=== PATIENT | female | born 1950 | race African-American/Black ===

== ENCOUNTER 2021-04-08 19:40 | Observation (INO) | payer MEDICARE, SELFPAY ==
[2021-04-08] VITALS (8 sets, daily range): BP systolic 132–155; BP diastolic 59–71; PULSE 77–88; RESP 18–22; TEMP 37; O2SAT 100
--- NOTE | ~2021-04-08 | NM_ITS ---
EXAMINATION: NM flor stress w perfusion DATE: 04/09/2021 16:02 INDICATION: Chest pain. TECHNIQUE: Rest images were obtained following intravenous administration of 10.3 mCi Tc99m tetrofosm in (Myoview). The patient was infused intravenously with Lexiscan (regadenoson). Then, 33.2 mCi Tc99m tetrofosmin (Myoview) was administered intravenously, and stress images were obtained. Data was adolfo nstructed into short axis and horizontal and vertical long axis SPECT images. Gated SPECT images were also obtained. COMPARISON: Chest CT 04/08/2021 FINDINGS: There is no definite reversible or fixed perfusion abnormality to suggest ischemia or infar ction. There is no segmental wall motion abnormality. Left ventricular ejection fraction measures > 70%. IMPRESSION: 1. No definite ischemia or infarct. 2. Normal left ventricular ejection fraction measuring >70%. Reviewed, dictated and finalized at location B. ING CARRIER
--- NOTE | ~2021-04-08 | XR_ITS ---
XR chest 2V 04/08/2021 20:33 Indication: Sternal chest pressure. History of stents. Procedure: PA and lateral views of the chest Comparison: No prior studies for comparison. Findings: There are linear infiltrates of the lower lungs, compatible with atelectasis. Heart size no rmal. No focal pneumonia, edema, pleural effusion or pneumothorax. No acute osseous abnormality. Impression: 1: Bibasilar subsegmental atelectasis. Reviewed, dictated and finalized at location A. ER BLENDER AND POURER Impression: 1: Bibasilar subsegmental atelectasis.
--- NOTE | ~2021-04-08 | CT_ITS ---
EXAMINATION: CTA chest PE protocol DATE: 04/08/2021 23:53 LICENSED VETERINARY TECHNICIAN INDICATION: Elevated d-dimer. TECHNIQUE: Computed tomographic angiography (CTA) of the chest was performed with 100 mL Omnipaque-35 0 intravenous contrast. The dose-length product was 163.86 mGy-cm. Maximum intensity projection 3D-re constructions of the aorta and other arteries were constructed by the technologist on a separate work station. COMPARISON: Chest x-ray dated 04/08/2021. FINDINGS: Study is technically adequate without evidence for pulmonary embolism. No thoracic lymphade nopathy. No evidence for aortic aneurysm or dissection. No significant pleural or pericardial effusio n. There is emphysema. No endobronchial lesions. There is linear subsegmental atelectasis of the mid and lower lungs. No focal airspace consolidation. There is a small hiatal hernia. No endobronchial le sions. No suspicious pulmonary nodules or masses. There is a 2.8 cm right adrenal mass, likely benign adenoma. IMPRESSION: 1. No evidence for pulmonary embolism. 2: Subsegmental atelectasis of the mid and lower lungs. 3: Right adrenal mass measuring 2.8 cm, likely benign adenoma. Reviewed, dictated and finalized at location A. NSED VETERINARY TECHNICIAN
--- NOTE | 2021-04-08 19:46 | ECG_ITS ---
Measurements Intervals [place] Rate: 95 P: -9 DC: 169 QRS: 89 QRSD: 63 T: 23 QT: 345 QTc: 436 Interpretive Statements ECTOPIC ATRIAL RHYTHM POSSIBLE LEFT ATRIAL ENLARGEMENT INCOMPLETE RIGHT BUNDLE BRANCH BLOCK LOW QRS VOLTAGE- DIFFUSE LEADS ANTERIOR INFARCT, AGE INDETERMINATE BASELINE ARTIFACT- II, III, AVR, AVF, V5-V6 ABNORMAL ECG Electronically Signed On 04-08-2021 20:11:41 SUPERVISOR [employer]FA[employer]URING by Roby Rahman D.O.
[2021-04-08] MEDS: ASPIRIN 81 MG CHEWABLE TABLET 324 MG PO (19:55)
[2021-04-08 20:29] LABS: Basophils Percent Auto 0.2 % (0.2-1.2); Eosinophils Percent Auto 0.1 % (0-4.4); Hematocrit 39.2 % (37.0-47.0); Hemoglobin 13.1 g/dL (12.0-15.0); Immature Granulocyte Absolute 0.04 K/mm3 (0.00-0.031); Immature Granulocyte Percent A 0.4 % (0-0.5); Lymphocytes Absolute Auto 1.43 K/mm3 (0.9-3.2); Lymphocytes Percent Auto 15.9 % (18.3-44.2); Mean Corpuscular HGB Conc 33.4 g/dl (32-36); Mean Corpuscular Hemoglobin 28.6 pg (26-34); Mean Corpuscular Volume 85.6 fl (80-100); Mean Platelet Volume 8.8 fl (7.4-10.4); Monocytes Absolute Auto 0.6 K/mm3 (0.1-0.6); Monocytes Percent Auto 6.7 % (2.6-8.5); Neutrophils Absolute Auto 6.9 K/mm3 (1.3-6.7); Neutrophils Percent Auto 76.7 % (45.5-73.1); Platelet Count Result 431 k/mm3 (150-375); Red Blood Count 4.58 M/mm3 (4.2-5.4); Red Cell Distribution Width 12.7 % (11.5-14.5)
[2021-04-08 20:38] LABS: Prothrombin Time 12.6 Seconds (11.1-14.7)
[2021-04-08 20:39] LABS: Partial Thromboplastin Time 36.6 SECONDS (22.3-36.8)
[2021-04-08 20:50] LABS: Alanine Aminotransferase 17 U/L (4-35); Albumin Level 4.2 g/dL (3.5-5.1); Alkaline Phosphatase 114 U/L (38-126); Anion Gap 12 mmol/L (8-16); Aspartate Amino Transferase 25 U/L (14-36); Bilirubin,Total 0.9 mg/dL (0.2-1.3); Blood Urea Nitrogen 12 mg/dL (7-17); Calcium 9.7 mg/dL (8.4-10.2); Carbon Dioxide 28 mmol/L (22-30); Chloride 94 mmol/L (98-107); Estimated CRCL calculation 50 ml/min; Estimated Glomerular Filt Rate > 60; Glucose 200 mg/dL (65-110); Lipase 177 U/L (23-300); Potassium 4.6 mmol/L (3.4-5.0); Sodium 134 mmol/L (137-145)
[2021-04-08 20:53] LABS: Troponin I < 0.012 ng/mL (0.000-0.034)
--- NOTE | 2021-04-08 21:02 | ED.CHESTPAIN ---
HPI - Chest Pain General Chief Complaint: Chest Pain Stated Complaint: Shortness of breath, chest discomfort Time Seen by Provider: 04/08/21 19:57 Source: patient Mode of arrival: ambulatory Limitations: no limitations History of Present Illness HPI narrative: 71 year old female with history of CAD s/p stent, HTN, DM2, high cholesterol complains of 2 day history of chest pain, substernal, non-radiating, intermittent, none currently. NO fever, no vomiting, no cough, does have shortness of breath with chest pain today. No leg swelling. Pain described as dull, non-radiating worse with nothing, improves with nothing. Last stress test a year ago. No recent medication changes. Related Data Allergies Allergy/AdvReac Type Severity Reaction Status Date / Time Penicillins Allergy Dyspnea / Verified 04/08/21 19:55 SOB Review of Systems Review of Systems: CONSTITUTIONAL: no fever, no weight loss, no confusion EYES: no vision changes, no eye pain ENT: no rhinorrhea, no sore throat, no difficulty swallowing CARDIOVASCULAR: positive for chest pain, no leg edema, no palpitations RESPIRATORY: no cough, positive for shortness of breath, no hemoptysis GASTROINTESTINAL: no abdominal pain, no nausea, no vomiting, no diarrhea GENITOURINARY: no flank pain, no dysuria, no hematuria SKIN: no rash, no jaundice MUSCULOSKELETAL: no back pain, no trauma. NEUROLOGIC: No headache, no dizziness, no focal weakness PSYCHIATRIC: No hallucinations, no suicidal ideation Exam Narrative: General: alert, afebrile, answering all questions appropriately Head: normocephalic, atraumatic Eyes: EOMI bilaterally, anicteric, no injection ENT: moist mucous membranes, oropharynx patent, no rhinorrhea Neck: supple, trachea midline, no JVD Chest: equal chest rise bilaterally, no chest wall trauma noted Lungs: clear to auscultation bilaterally, respirations unlabored CV: regular rate, no TERESA B, calf size equal bilaterally Abd: soft, non-distended, negative Begum's EXT: no deformity noted, moving all extremities equally Skin: warm, dry, no pallor Neuro: alert, oriented x 3; CN 2-12 grossly intact, no dysarthria Psych: affect appropriate, though content normal Course Course Emergency Course: SPoke with Dr Kraus regarding tele obs given risk factors of CAD, HTN, DM2 with chest pain. CTA PE study negative for PE. Vital Signs Vital signs: Vital Signs Pulse Rate 77 04/08/21 20:00 Temperature 37.0 C 04/08/21 20:17 Pulse Rate 81 04/09/21 02:24 Respiratory Rate 20 04/09/21 02:24 Blood Pressure 134/61 04/09/21 02:24 Pulse Oximetry 96 04/09/21 02:24 MDM - Chest Pain MDM Narrative Medical decision making narrative: Patient with multiple risk factors, including CAD, HTN and DM-- chest pain resolved in ED, no chest pain currently, CTA negative for PE or acute process, will admit OBS for chest pain rule out. Patient aware and agrees with plan. Differential Diagnosis Differential diagnosis: Likely pneumothorax, stable angina, unstable angina pectoris, atypical chest pain, chest pain, biliary colic and other (Pleural effusion, vascular catastrophe, gastritis, pancreatitis, GERD) Medical Records Data Attestation: I reviewed the patient's medical records. Lab Data Attestation: I reviewed the patient's lab results. Result diagrams: 04/08/21 20:11 04/08/21 20:11 Labs: Lab Results 04/08/21 04/08/21 04/08/21 Range/Units 20:11 20:11 20:11 WBC 9.0 (4.5-10.0) K/mm3 RBC 4.58 (4.2-5.4) M/mm3 Hgb 13.1 (12.0-15.0) g/dL Hct 39.2 (37.0-47.0) % MCV 85.6 (80-100) fl MCH 28.6 (26-34) pg MCHC 33.4 (32-36) g/dl RDW 12.7 (11.5-14.5) % Plt Count 431 H (150-375) k/mm3 MPV 8.8 (7.4-10.4) fl Immature Gran % (Auto) 0.4 (0-0.5) % Neut % (Auto) 76.7 H (45.5-73.1) % Lymph % (Auto) 15.9 L (18.3-44.2) % [place] % (Auto) 6.7 (2.6-8.5) % Eos % (Auto) 0.1 (0-4.4) % Baso %
[2021-04-08 22:53] LABS: D Dimer 2.54 ug/mL (<0.48)
[2021-04-09] VITALS (15 sets, daily range): BP systolic 134–153; BP diastolic 61–79; PULSE 74–90; RESP 16–20; TEMP 36.3–36.7; O2SAT 96–100; BMI 24.0
[2021-04-09 00:13] LABS: Troponin I < 0.012 ng/mL (0.000-0.034)
[2021-04-09 02:56] LABS: Troponin I < 0.012 ng/mL (0.000-0.034)
--- NOTE | 2021-04-09 03:50 | PM.IMHP ---
H&P: HPI History of Present Illness Date/Time: 04/09/21 03:50 Chief Complaint: Chest pain Narrative: 71 year old female who is originally from [place] came here to visit his her son with history of CAD s/p stent last stent 5 years ago, HTN, DM2, high cholesterol complains of 2 day history of chest pain, substernal, non-radiating, constant since past 2 days. She arrived here via train from [place] on Thursday. She denies any fever chills cough nausea vomiting abdominal pain. She states that she had some pancreatic issue for which she had a pancreatic stent put in but was taken out 2 weeks ago. She states she had a stress test done a year ago which was negative. She actually followed up with her material inspector. Workup here reveals nonspecific ST-T changes with troponin negative. D-dimer came back elevated CT scan PE protocol was done particularly due to recent travel history came back negative for PE. With her cardiac history and diabetes she is getting admitted for further evaluation and management. Review of Systems Review of Systems: - CONSTITUTIONAL: Denies weight loss, fever and chills. - HEENT: Denies changes in vision and hearing - RESPIRATORY: Reports SOB and denies cough. - CV: Denies palpitations and reports CP. - GI: Denies abdominal pain, nausea, vomiting and diarrhea. - : Denies dysuria and urinary frequency. - MSK: Denies myalgia and joint pain. - SKIN: Denies rash and pruritus. - NEUROLOGICAL: Denies headache and syncope. - PSYCHIATRIC: Denies recent changes in mood. Denies anxiety and depression. All systems reviewed & are unremarkable except as noted in HPI and below Constitutional: Constitutional: Reports fatigue and Reports weakness Neurologic: Reports weakness Endocrine: Endocrine: Reports fatigue Meds Home Medications and Allergies Allergies Allergy/AdvReac Type Severity Reaction Status Date / Time Penicillins Allergy Dyspnea / Verified 04/08/21 19:55 SOB Vital Signs Vital Signs - 24 hr 04/08/21 20:00 04/08/21 20:02 04/08/21 20:03 Temperature Pulse Rate 77 88 87 Respiratory Rate 21 H 18 Blood Pressure 155/71 H Pulse Oximetry 04/08/21 20:15 04/08/21 20:17 04/08/21 20:34 Temperature 98.6 F Pulse Rate 78 77 79 Respiratory Rate 19 22 H 19 Blood Pressure 142/61 H Pulse Oximetry 100 04/08/21 20:45 04/08/21 21:19 04/09/21 02:24 Temperature Pulse Rate 83 81 81 Respiratory Rate 20 18 20 Blood Pressure 132/59 L 134/61 Pulse Oximetry 100 96 Exam Narrative: General: alert, afebrile, not in acute distress Head: normocephalic, atraumatic Eyes: EOMI bilaterally, anicteric, no injection ENT: moist mucous membranes, oropharynx patent, no rhinorrhea Neck: supple, trachea midline, no JVD Chest: equal chest rise bilaterally, no chest wall trauma noted Lungs: clear to auscultation bilaterally, respirations unlabored CV: regular rate, no TERESA B, calf size equal bilaterally Abd: soft, non-distended, negative Begum's EXT: no deformity noted, moving all extremities equally Skin: warm, dry, no pallor Neuro: alert, oriented x 3; CN 2-12 grossly intact, no dysarthria Psych: affect appropriate, though content normal H&P: Results Labs Labs: Short CBC 04/08/21 Range/Units 20:11 WBC 9.0 (4.5-10.0) K/mm3 Hgb 13.1 (12.0-15.0) g/dL Hct 39.2 (37.0-47.0) % Plt Count 431 H (150-375) k/mm3 BMP 04/08/21 20:11 Sodium 134 L Potassium 4.6 Chloride 94 L Carbon Dioxide 28 BUN 12 Creatinine 0.70 Glucose 200 H Calcium 9.7 Cardiac Enzymes 04/08/21 04/08/21 04/09/21 Range/Units 20:11 23:42 02:23 Troponin I < 0.012 < 0.012 < 0.012 (0.000-0.034) ng/mL Liver Function 04/08/21 Range/Units 20:11 Total Bilirubin 0.9 (0.2-1.3) mg/dL AST 25 (14-36) U/L ALT 17 (4-35) U/L Alkaline Phosphatase 114 (38-126) U/L Albumin 4.2 (3.5-5.1) g/dL Assessment and Plan Assessment and plan (1
--- NOTE | 2021-04-09 05:51 | ADMGEN ---
This patient, Claudia Hernadez, was admitted to IMU Room 206-01 at 0551. Patient/family oriented to hospital policies and general routines including ID bracelet, bed and alarms, visiting hours, pain management, procedures, bathroom and other care routines, personal items, smoking policy, room service/diet, and visiting hours. Information on how to activate the Rapid Response Team has been discussed. Patient/Family are encouraged to report perceived risks to care and to ask questions if they do not understand what they are told or what they should do.
--- NOTE | 2021-04-09 09:16 | PM.IMPN ---
Subjective Date/time seen: 04/09/21 09:16 Objective Data Vital Signs Vital Signs: Vital Signs - 24 hr 04/08/21 20:00 04/08/21 20:02 04/08/21 20:03 Temperature Pulse Rate 77 88 87 Respiratory Rate 21 H 18 Blood Pressure 155/71 H Pulse Oximetry 04/08/21 20:15 04/08/21 20:17 04/08/21 20:34 Temperature 98.6 F Pulse Rate 78 77 79 Respiratory Rate 19 22 H 19 Blood Pressure 142/61 H Pulse Oximetry 100 04/08/21 20:45 04/08/21 21:19 04/09/21 02:24 Temperature Pulse Rate 83 81 81 Respiratory Rate 20 18 20 Blood Pressure 132/59 L 134/61 Pulse Oximetry 100 96 04/09/21 04:36 04/09/21 04:58 04/09/21 05:21 Temperature Pulse Rate 90 78 79 Respiratory Rate 18 18 Blood Pressure 140/64 140/64 Pulse Oximetry 96 04/09/21 06:00 04/09/21 06:04 04/09/21 08:07 Temperature 97.7 F 98.0 F Pulse Rate 76 80 75 Respiratory Rate 18 16 Blood Pressure 140/61 149/64 H Pulse Oximetry 100 99 Meds/Results Medications: Active Medications Generic Name Dose Route Start Last Admin Trade Name Freq PRN Reason Stop Dose Admin Aspirin 81 mg 04/09/21 09:00 Aspirin 81 Mg Enteric Tablet PO QAM [facility] Dextrose 12.5 gm 04/09/21 03:57 Dextrose 50% 25 Gm/50 Ml Syringe IV PUSH PRN PRN Hypoglycemia Protocol Glucagon 1 mg 04/09/21 03:57 Glucagon For Inj 1 Mg Vial IM PRN PRN Hypoglycemia Protocol Glucose 15 gm 04/09/21 03:57 Glucose Oral Gel 15 Gm Of Glucse In 37.5 Gm Tube PO PRN PRN Hypoglycemia Protocol Dextrose 1,000 mls @ 100 mls/hr 04/09/21 03:57 Dextrose 5% 1,000 Ml IVPB PRN PRN Hypoglycemia Protocol Insulin Aspart 2 - 5 units 04/09/21 08:00 Insulin Aspart (*Bkc) 100 Units/Ml SUB-Q TIDWM [facility] Protocol Radiology Results: ITS Impressions Chest X-Ray 04/08/21 20:43 Impression: 1: Bibasilar subsegmental atelectasis. Chest CTA 04/08/21 23:53 IMPRESSION: 1. No evidence for pulmonary embolism. 2: Subsegmental atelectasis of the mid and lower lungs. 3: Right adrenal mass measuring 2.8 cm, likely benign adenoma. Labs Labs: Laboratory Results - last 24 hr 04/08/21 04/08/21 04/08/21 20:11 20:11 20:11 WBC 9.0 RBC 4.58 Hgb 13.1 Hct 39.2 MCV 85.6 MCH 28.6 MCHC 33.4 RDW 12.7 Plt Count 431 H MPV 8.8 Immature Gran % (Auto) 0.4 Neut % (Auto) 76.7 H Lymph % (Auto) 15.9 L [place] % (Auto) 6.7 Eos % (Auto) 0.1 Baso % (Auto) 0.2 Lymph # (Auto) 1.43 [place] # (Auto) 0.6 Eos # (Auto) 0.0 Baso # (Auto) 0.0 Abs Immat Gran (auto) 0.04 H Absolute Neuts (auto) 6.9 H Absolute Nucleated RBC 0.0 Nucleated RBC % 0.0 PT 12.6 INR 1.0 APTT 36.6 D-Dimer Sodium 134 L Potassium 4.6 Chloride 94 L Carbon Dioxide 28 Anion Gap 12 BUN 12 Creatinine 0.70 Estim Creat Clear Calc 50 Estimated GFR > 60 Glucose 200 H Calcium 9.7 Total Bilirubin 0.9 AST 25 ALT 17 Alkaline Phosphatase 114 Troponin I < 0.012 Total Protein 8.0 Albumin 4.2 Lipase 177 04/08/21 04/08/21 04/09/21 20:11 23:42 02:23 WBC RBC Hgb Hct MCV MCH MCHC RDW Plt Count MPV Immature Gran % (Auto) Neut % (Auto) Lymph % (Auto) [place] % (Auto) Eos % (Auto) Baso % (Auto) Lymph # (Auto) [place] # (Auto) Eos # (Auto) Baso # (Auto) Abs Immat Gran (auto) Absolute Neuts (auto) Absolute Nucleated RBC Nucleated RBC % PT INR APTT D-Dimer 2.54 H Sodium Potassium Chloride Carbon Dioxide Anion Gap BUN Creatinine Estim Creat Clear Calc Estimated GFR Glucose Calcium Total Bilirubin AST ALT Alkaline Phosphatase Troponin I < 0.012 < 0.012 Total Protein Albumin Lipase
[2021-04-09] MEDS: ASPIRIN 81 MG ENTERIC TABLET PO (09:41)
[2021-04-09 09:46] LABS: Glucose Point of Care 117 mg/dl (65-105)
--- NOTE | 2021-04-09 11:15 | PM.CNCAR ---
Assessment and Plan Assessment and plan (1) Chest pain: Qualifiers: Chest pain type: unspecified Qualified Code(s): R07.9 - Chest pain, unspecified Code(s): R07.9 - Chest pain, unspecified Status: Acute Assessment and Plan: Atypical, nonexertional persisted for greater than 48 hours with negative serial cardiac enzymes or acute ischemic EKG changes. Symptoms completely resolved. Patient at elevated risk due to age, history of CAD with prior intervention, hypertension, dyslipidemia, and diabetes mellitus. Discussed options at length including preference to pursue noninvasive ischemic evaluation for further risk stratification given her history. However, as she has ruled out for AR with atypical constant sxs that have now completely resolved in addition to having ruled out for AR, it would be reasonable to continue medical management alone. I feel she is at increased risk for adverse events as [place] of [place] and will travel by train back home with limited medical resources. Therefore, given this risk I advised the information provided by noninvasive ischemic evaluation would be useful to assess her risk prior to travel. After lengthy discussion patient initially was fairly clear she did not wish to pursue any additional testing and initially respectfully declined. Subsequently, she indicated she would consider this recommendation and her options and notify us if she changes her mind and pursue stress test prior to discharge. She expressed a desire initially to hold off and follow up with her front end developer javascript html css for further testing as appropriate. If she does not agree to pursue stress test, I would like to observe for tolerance with ambulation and after eating to ensure she does not have a recurrence of her symptoms. Agree with PPI per hospitalist service. I will repeat her 12 lead EKG and obtain a fasting lipid panel. Her exam is not suggestive significant valvular heart disease. We discussed 2D echo cardiac to assess wall motion, function and valve pathology. At this time as she is completely asymptomatic with an unremarkable exam is unlikely to alter our management so will hold off given her desire to avoid additional testing at this time. If no subsequent changes by EKG she is currently stable from a cardiac perspective and may be discharged home per hospitalist service follow-up as an outpatient. She will monitor symptoms very closely and should she ever current to notify her physician and or present to the nearest emergency department immediately via EMS. Patient verbalized understanding and agreed with plan of care. (2) Coronary artery disease: Code(s): I25.10 - Atherosclerotic heart disease of [place] coronary artery without angina pectoris Status: Acute Assessment and Plan: Continue aspirin 81 mg daily, statin, beta-mami therapy. Records unavailable unfortunately at this time but I would like to review if able to obtain. Reported prior stent implantation approximately 5 years ago. She reports current symptoms somewhat similar to that which she has experienced previously occurring monthly or so for the past several years with negative stress tests performed with her front end developer javascript html css with whom she follows on routine basis. (3) Palpitations: Code(s): R00.2 - Palpitations Status: Acute Assessment and Plan: Appear to coincide with chest pain but no prior diagnosis of arrhythmia nor arrhythmia documented telemetry including atrial or ventricular ectopy. Continue Toprol XL 50 mg daily for now. (4) Ectopic atrial rhythm: Code(s): I49.1 - Atrial premature depolarization Status: Acute Assessment and Plan: Discussed with patient at length. Patient is asymptomatic with incidentally discovered ectopic atrial rhythm. Chronicity is unknown. No evidence of high-grade AV block or symptoms suggestive a bradyarrhythmia with near-syncope, syncope, dizziness and or falls.
--- NOTE | 2021-04-09 11:25 | ECG_ITS ---
Measurements Intervals [place] Rate: 75 P: 7 GA: 178 QRS: -15 QRSD: 70 T: 17 QT: 381 QTc: 428 Interpretive Statements SINUS OR ECTOPIC ATRIAL RHYTHM INCOMPLETE RIGHT BUNDLE BRANCH BLOCK LOW QRS VOLTAGE IN LIMB LEADS CONSIDER ANTERIOR INFARCT, AGE INDETERMINATE MINIMAL Q WAVES- INFERIOR LEADS ABNORMAL ECG Electronically Signed On 04-09-2021 12:11:07 ALUM MIXER by Roby Rahman D.O.
--- NOTE | 2021-04-09 11:47 | EST_ITS ---
Patient Info Name: Claudia Hernadez Age: 71 years : 1950 Gender: Female Ht: 62 in Wt: 131 lbs BSA: 1.62 m2 HR: 78 bpm BP: 161 / 73 mmHg Heart Rhythm: Sinus Rhythm Exam Date: 04/09/2021 2:57 PM Exam Location: [facility] Stress Patient Status: Inpatient Admit Date: 04/09/2021 Staff Ordering Physician: Dennis Mark MD Attending Provider: Vel Sandoval MD Exercise Technologist: Martha Moreira CT Exercise Physician: Dennis Mark MD Exam Type: CA stress flor w NM Study Info Indications I25.119 - Atherosclerotic heart disease of [place] coronary artery with unspecified angina pectoris R07.9 - Chest pain, unspecified A regadenoson stress test was performed. Summary 1. No arrhythmias were observed during the examination. 2. No abnormal ST/T wave changes with Lexiscan administration. 3. Please correlate with nuclear medicine images, reported separately. 4. No chest discomfort with stress test. Protocol: Lexiscan Stress ECG Details Stage: REST Duration (min): 2 min : 35 sec HR (bpm): 79 SBP (mmHg): 161 DBP (mmHg): 73 Stage: REST Duration (min): 8 min : 26 sec HR (bpm): 81 SBP (mmHg): 161 DBP (mmHg): 73 Stage: STAGE 1 Duration (min): 1 min : 0 sec HR (bpm): 106 SBP (mmHg): 146 DBP (mmHg): 74 Stage: RECOVERY Duration (min): 1 min : 0 sec HR (bpm): 105 SBP (mmHg): 146 DBP (mmHg): 74 Stage: RECOVERY Duration (min): 2 min : 0 sec HR (bpm): 106 SBP (mmHg): 146 DBP (mmHg): 74 Stage: RECOVERY Duration (min): 3 min : 0 sec HR (bpm): 101 SBP (mmHg): 146 DBP (mmHg): 74 Stage: RECOVERY Duration (min): 4 min : 0 sec HR (bpm): 96 SBP (mmHg): 146 DBP (mmHg): 74 Stage: RECOVERY Duration (min): 4 min : 42 sec HR (bpm): 100 SBP (mmHg): 177 DBP (mmHg): 70 Rest HR: 81 bpm Peak HR: 108 bpm Rest Sys BP: 161 mmHg Peak Sys BP: 177 mmHg Max Pred HR: 149 bpm % Max Pred HR: 72 % Target HR: 127 bpm Max RPP: 19,116 bpm*mmHg BP Response: Normal blood pressure response Termination Reason: Completed protocol Cardiac Symptoms: None Total Time: 1 min : 0 sec Rest Cardenas BP: 73 mmHg Peak Cardenas BP: 70 mmHg Total Dose: 0.4 mg Resting ECG Normal sinus rhythm. RSR prime V1 V2 borderline EKG. Stress ECG No abnormal ST/T wave changes with Lexiscan administration. Arrhythmias No arrhythmias were observed during the examination. Report Signatures
[2021-04-09 12:23] LABS: Cholesterol 120 mg/dL (0-200); HDL Direct 30 mg/dL; Triglycerides 90 mg/dL (<150)
[2021-04-09 12:30] LABS: Glucose Point of Care 93 mg/dl (65-105)
[2021-04-09 12:34] LABS: LDL Cholesterol Direct 48 mg/dL
[2021-04-09] MEDS: PANTOPRAZOLE SOD SESQUIHYDRATE 20 MG TAB PO (12:45)
--- NOTE | 2021-04-09 17:00 | PM.DS ---
DS: Admitting Diagnosis Discharge Date 04/08/2021 Admitting Diagnosis Atypical Chest Pain DS: Discharge Diagnosis Discharge Diagnosis (1) Atypical chest pain: Code(s): R07.89 - Other chest pain Status: Acute Assessment and Plan: Patient presented to ED with chest pain and shortness of breath. D-dimer elevated but CTA showed no PE. EKG with ectopic atrial rhythm. Serial troponins. History of CAD w/ stent placement 4 years ago. Negative stress test about a year ago per patient. Given history patient underwent chemical stress test, which was unremarkable. Patient advised to follow up with her Teletype Installer in [place]. (2) Ectopic atrial rhythm: Code(s): I49.1 - Atrial premature depolarization Status: Acute Assessment and Plan: Noted on EKG in ED. (3) Hyperlipidemia: Code(s): E78.5 - Hyperlipidemia, unspecified Status: Acute Assessment and Plan: On atorvastatin 40 mg po daily at home. Continue atorvastatin. (4) Hypertension: Code(s): I10 - Essential (primary) hypertension Status: Acute Assessment and Plan: On lisinopril 5 mg po daily. Continue lisinopril. (5) Type 2 diabetes mellitus: Code(s): E11.9 - Type 2 diabetes mellitus without complications Status: Acute Assessment and Plan: Takes trulicity, jardiance, glimepiride and metformin at home. Continue home medication. (6) Coronary artery disease: Code(s): I25.10 - Atherosclerotic heart disease of [place] coronary artery without angina pectoris Status: Acute Assessment and Plan: S/p stent placement 5 years ago with negative stress test a year ago. Lexiscan today was normal with EF 70%. Continue atorvastatin and metoprolol. (7) Palpitations: Code(s): R00.2 - Palpitations Status: Acute Assessment and Plan: Patient has been having this since prior to presentation with initial symptoms initiating workup that culminated with stent placement 5 years ago. This may be due to anxiety. Follow up with PCP. DS: Summary Hospital Course Hospital Course: Patient presented to the ED with chest pain and was found to have an elevated D dimer. CTA chest showed no pulmonary embolism. Patient cardiac enzymes were all normal. Give patient history of CAD s/p stent placement 5 years ago, patient was taken by Cardiology for lexiscan. Lexiscan was normal with EF 70%. Patient discharged to home. Time Spent with Patient Time attestation: Total time spent providing and/or coordinating discharge services: 20 Exam Narrative: GENERAL: NAD, cooperative HEENT: Normocephalic, atraumatic, anicteric, wearing eyeglasses NECK: Supple CV: Normal S1, S2, RRR, No MRG RESP: CTAB, Normal work of breathing. Abdomen: Soft, non-tender, non-distended, +BS EXTREMITIES: Warm and well perfused, no clubbing, cyanosis, or edema. SKIN: warm, dry and intact. NEURO:CN 2-12 grossly intact. DS: Data Data Completed and Pending Labs on day of discharge: Labs from last 24 hours 04/09/21 04/09/21 04/09/21 12:08 11:41 09:44 WBC RBC Hgb Hct MCV MCH MCHC RDW Plt Count MPV Immature Gran % (Auto) Neut % (Auto) Lymph % (Auto) [place] % (Auto) Eos % (Auto) Baso % (Auto) Lymph # (Auto) [place] # (Auto) Eos # (Auto) Baso # (Auto) Abs Immat Gran (auto) Absolute Neuts (auto) Absolute Nucleated RBC Nucleated RBC % PT INR APTT D-Dimer Sodium Potassium Chloride Carbon Dioxide Anion Gap BUN Creatinine Estim Creat Clear Calc Estimated GFR Glucose POC Capillary Glucose 93 117 H Calcium Total Bilirubin AST ALT Alkaline Phosphatase Troponin I Total Protein Albumin Triglycerides 90 Cholesterol 120 LDL Cholesterol Direct 48 HDL Direct 30 Lipase 04/09/21 04/08/21 04/08/21 02:23 23:42 20:1
[2021-04-09 17:17] LABS: Glucose Point of Care 133 mg/dl (65-105)
== END 2021-04-09 18:28 | disposition home or self-care (01) ==
LOC: ANHED 04-09 00:09 → ANHIMU 04-09 11:09
PROVIDERS: Emergency Medicine; Internal Medicine Cardiovascular Disease; Admitting Provider Internal Medicine; Emergency Provider Emergency Medicine; Visit Provider Family Medicine
DX: R07.89 Other chest pain (principal); I49.1 Atrial premature depolarization; I10 Essential (primary) hypertension; E78.5 Hyperlipidemia, unspecified; I25.10 Atherosclerotic heart disease of native coronary artery without angina pectoris; R00.2 Palpitations; E11.9 Type 2 diabetes mellitus without complications; Z95.5 Presence of coronary angioplasty implant and graft; Z79.899 Other long term (current) drug therapy
CPT/HCPCS: 36415; 71046; 71275; 78452; 80053; 80061; 82948; 83690; 84484; 85025; 85380; 85610; 85730; 93005; 93017; 99285; A9270; A9502; G0378; J2785; Q9967

== ENCOUNTER 2022-12-24 08:01 | Outpatient (CLI) | payer MEDICARE, SELFPAY ==
--- NOTE | ~2022-12-24 | NM_ITS ---
EXAM: NM gastric emptying study DATE: 12/24/2022 14:35 INDICATION: Type 2 diabetes mellitus without complication. TECHNIQUE: A gastric emptying study was performed using the methodology of Alberto RUDD, et al. J Nucl Med 2007; 48:568-572. The patient was given a meal consisting of 2 scrambled eggs labeled with 1.039 mCi Tc-99m sulfur colloid, 2 slices of toast, two packages of jam, and approximately 120 mL of water . Simultaneous anterior and posterior 1-min images of the abdomen were obtained with the patient supi ne at multiple time points over a total period of 4 hours. The geometric mean of anterior and posteri or views was determined, and the percentage retention was calculated for each time point. COMPARISON: Chest CT 04/08/2021 FINDINGS: Gastric retention of the radiotracer-labeled meal was 64%, 19%, and 1% at the 1-hour, 2-ho ur, and 4-hour time points, respectively. With this technique, apparent rapid gastric emptying is sug gested by <30% gastric retention at 1 hour. Delayed gastric emptying is defined by gastric retention of >90% at 1 hour, >60% retention at 2 hours, or >10% retention at 4 hours. IMPRESSION: 1. Normal gastric emptying. Reviewed, dictated and finalized at location A. IMPRESSION: 1. Normal gastric emptying.
== END 2022-12-24 08:02 | disposition home or self-care (01) ==
PROVIDERS: PCP Family Medicine; Visit Provider Internal Medicine Gastroenterology
DX: E11.9 Type 2 diabetes mellitus without complications (principal); R11.0 Nausea
CPT/HCPCS: 78264; A9541

== ENCOUNTER 2023-02-05 08:40 | Outpatient (CLI) | payer MEDICARE, OTHER, SELFPAY ==
--- NOTE | ~2023-02-05 | MR_ITS ---
EXAMINATION: MR MRCP wo/w con/w 3D wo ind DATE: 02/05/2023 10:09 INDICATION: Other chronic pancreatitis TECHNIQUE: Magnetic resonance imaging (MRI) of the abdomen was performed without and with intravenous contrast. Sequences included coronal T2-weighted SS-FSE ARC, coronal T2-weighted FS SS-FSE, coronal T2-weighted 2D FS FIESTA, Water:Coronal LAVA-Flex, sagittal T2-weighted SS-FSE ARC, axial SSFSE ARC, axial 3D DualEcho, axial DWI B=600, axial T1-weighted LAVA, FAT:Coronal LAVA-Flex, and coronal in and opposed phase LAVA-Flex. Thick-slab T2-weighted FRFSE-XL images were obtained for magnetic resonance cholangiopancreatography (MRCP). Maximum intensity projection 3-D reconstructions of the volumetric data were created by the technologist. Postcontrast sequences included a time course of axial T1-weig hted LAVA, FAT:Coronal LAVA-Flex, coronal in and opposed phase LAVA-Flex, and Water:Coronal LAVA-Flex . COMPARISON: None. CONTRAST: Multihance, 13 cc FINDINGS: ABDOMEN MRI: The liver, spleen, gallbladder, and left adrenal gland are normal. There is a 1.9 cm mas s of the right adrenal gland with loss of signal intensity on opposed phase sequences, consistent wit h an adenoma. There is a 4 mm cyst of the left kidney. The right kidney is unremarkable. There are no pathologically enlarged abdominal lymph nodes. A large volume of colonic stool is present. No abnorm al enhancement is present after contrast administration. There is severe lumbar spondylosis at L5-S1. ABDOMEN MRCP: Pancreas divisum is noted. There is mild enlargement of the pancreatic duct which measu res up to 5 mm. The common bile duct is dilated measuring up to 10 mm. No biliary stones or stricture are identified. IMPRESSION: 1. Mild enlargement of the pancreatic duct which could relate to prior pancreatitis. 2. Dilated common bile duct without stone or stricture identified. 3. Right adrenal adenoma. 4. Constipation. Reviewed, dictated and finalized at location L. IMPRESSION: 1. Mild enlargement of the pancreatic duct which could relate to prior pancreat itis. 2. Dilated common bile duct without stone or stricture identified. 3. Right adrenal adenoma. 4. Constipation.
== END 2023-02-05 08:41 | disposition home or self-care (01) ==
PROVIDERS: PCP Family Medicine; Visit Provider Internal Medicine Gastroenterology
DX: K86.1 Other chronic pancreatitis (principal); K59.00 Constipation, unspecified; D35.01 Benign neoplasm of right adrenal gland
CPT/HCPCS: 74183; 76376; A9577

== ENCOUNTER 2023-09-08 09:15 | Outpatient (RCR) | payer MEDICARE, OTHER, SELFPAY ==
[2023-07-02 09:24] VITALS: BMI 27.1
[2023-07-02 09:30] VITALS: BMI 27.1
== END 2023-09-30 23:59 | disposition home or self-care (01) ==
LOC: ANHDMC 09:15
PROVIDERS: PCP Family Medicine; Visit Provider Family Medicine
DX: E11.9 Type 2 diabetes mellitus without complications (principal); Z71.3 Dietary counseling and surveillance; Z71.89 Other specified counseling
CPT/HCPCS: 97802; G0108

== ENCOUNTER 2024-04-30 08:46 | Outpatient (CLI) | payer MEDICARE, OTHER, SELFPAY ==
--- NOTE | ~2024-04-30 | DEXA_ITS ---
Bone Density Report Name: CAYDEN VERA Age: 74 Sex: Female Ethnicity: White Date of : 1950 Indication: postmenopausal; screening for osteoporosis; height loss; hysterectomy; Referring Provider: KAREN MUIR Study: Bone densitometry was performed. Exam Date: April 30, 2024 Accession number: [id number] Bone Density: Region BMD T-score Z-score Classification AP Spine(L1-L4) 1.221 1.6 3.9 Normal Femoral Neck (Left) 0.749 -0.9 1.1 Normal Total Hip (Left) 0.995 0.4 2.2 Normal Femoral Neck (Right) 0.769 -0.7 1.3 Normal Total Hip (Right) 1.000 0.5 2.2 Normal Total Hip Mean 0.997 0.5 2.2 Normal World Health Organization criteria for BMD impression classify patients as: Normal (T-score at or above -1.0), Osteopenia (T-score between -1.0 and -2.5), or Osteoporosis (T-score at or below -2.5). 10-year Fracture Risk: FRAX not reported because: All T-scores for Spine Total, Hip Total, Femoral Neck at or above -1.0 Clinical Information Provided by Patient: Has the following medical conditions: Hysterectomy Patient maximum height was 62 Menopause Age: 38 No regular weight bearing exercise Drinks caffeinated beverages Onset of menses at age 11 Number of children 1 Impression: The patient has normal bone mass. Discussion: BONE DENSITY IS ABOVE THE MINIMUM DESIRABLE LEVEL AT ALL SKELETAL SITES TESTED. This patient?s bone mineral density is above the minimum desirable level (T-score -1.0 or better) at all sites measured. The patient should follow a healthful lifestyle (good nutrition with adequate calcium and vitamin D, and appropriate weight-bearing exercise). Follow-Up: Consider repeating this study in 5 years or sooner if there is some new clinical indication. Reported by: RIGO on 04/30/2024 9:39:00 AM. Reviewed, dictated and finalized at location AGlen LADD
--- NOTE | ~2024-04-30 | MM_ITS ---
EXAMINATION: MM screening jaylene BI w hamida HISTORY: Screening TECHNIQUE: Craniocaudal and mediolateral oblique 3-D tomosynthesis images were obtained and synthetic 2-D images were generated. CAD analysis was submitted and interpreted. COMPARISON: No prior mammogram is available for comparison at this institution. BREAST PARENCHYMAL COMPOSITION: Not dense: There are scattered areas of fibroglandular density. FINDINGS: There is no evidence of suspicious mass, calcification, or architectural distortion to sugg est malignancy in either breast. There has been no suspicious interval change. IMPRESSION: 1. No mammographic evidence of malignancy. 2. Recommend routine screening mammography in one year. BI-RADS Category 1: Negative Reviewed, dictated and finalized at location B. [facility]OR CHILD ABUSE THERAPY
--- OUTSIDE RECORDS SUMMARY | 2024-05-04 00:08 | XMS_ITS | Continuity of Care Document ---
Author Organization [facility] Address [address] [place] [address] Phone Care Team Providers Care Sales Ledger Clerk Name Role Phone Unavailable Unavailable Unavailable Allergies, Adverse Reactions, Alerts Substance Reaction Status Criticality Penicillins Active No Information Medications Medication Instructions Dosage Effective Dates (start - stop) Status Comments Ilevro 0.3 % eye drops,suspension instill 1 drop by ophthalmic route every day to the operated eye beginning 1 day prior to surgery, continued on day of surgery and through the first 2 weeks of post-operative period. Instill 1 additional drop 30-120 minutes before surgery. 1.00 drop - Active Tirosint 50 mcg capsule take 1 capsule by oral route every day 50 MCG - Active Effient 5 mg tablet take 1 tablet by oral route every day 5 MG - Active metformin ER 1,000 mg tablet,extended release 24hr take 1 tablet by oral route every day with the evening meal 1000 MG - Active metoprolol succinate ER 50 mg tablet,extended release 24 hr take 1 tablet by oral route every day 50 MG - Active aspirin 81 mg tablet,delayed release take 1 tablet by oral route every day 81 MG - Active LANTUS (unknown strength) inject by subcutaneous route as per insulin protocol Not Available - Active Procedures Procedure Date Postop F/u Visit Incld Global 6 Postop F/u Visit Incld Global 6 Postop F/u Visit Incld Global 6 Extracapsular Cataract Remov I 16 A-Scan Via IOL Master Oph Exten, Inital Oph Exten, Inital Oph Serv: Med Exam; Comp Est 16 Postop F/u Visit Incld Global 5 Postop F/u Visit Incld Global 5 Postop F/u Visit Incld Global 5 No Charge For Insurance Overpy 15 Postop F/u Visit Incld Global 5 Extracapsular Cataract Remov I 15 Gonioscopy (separt Proc) Oph Exten, Inital Offic Cons New/estab Mod-hi 60 15 [facility] Advance Directives Directive Yes / No Effective Date File Name No Information Encounters Encounter Description Practice Location Reason(s) For Visit Diagnoses Date Provider Providers Copied on Encounter [facility], [facility] [address] [place], [place], [id number], tel:[phone] [facility] DZ BID/Ilevro QD OS (chief complaint)no complaints OS>OD (chief complaint)vi dustin is improved OS (chief complaint)DZ BID/Ilevro QD (chief complaint)no complaints (chief complaint)vi dustin is improved (chief complaint) No Information No Information Referring Provider: Shyanne Colon, [facility] [place], [address]. tel:[phone] [facility], [address] [place], [place], [id number], tel:[phone] [facility] eye is irritated this AM OS (chief complaint)DZ BID OS (chief complaint)vi dustin is improved OS (chief complaint)ey e is irritated this AM (chief complaint)DZ BID (chief complaint)vi dustin is improved (chief complaint) No Information 6 No Information Referring Provider: Shyanne Colon, [facility] [place], [place], [facility]. tel:[phone] [facility], [address] [place], [place], [id number], tel:[phone] [place] [facility] vision is improved OS (chief complaint)vi dustin is improved (chief complaint)Be si (0,3) Durezol (0,3) (chief complaint) Presence of pseudophakia 6 Esack Nazreen. [facility], [facility] [address] [place], [place], [id number], [place]. tel:[phone] Referring Provider: Shyanne Colon, [facility] [place], [facility]. tel:[phone] [facility], [facility] [address] [place], [place], [id number], tel:[phone] [facility] pt conscious,co mfortable w. no apparent distress (chief complaint) Combined forms of age-related cataract, left eye 6 Mario Estes. [address], [id number], [place]. tel:[phone] Referring Provider: Shyanne Colon, [address] [place] [address] [place], [facility]. tel:[phone] [facility], [address] [place] [address], [address], [place] tel:[phone] [facility] Combined forms of age-related cataract, left eye 6 Mario Franklyn. [address] [place], [place], [id number], [place]. tel:[phone] [facility], [address] [place], [place], [id number], [place] tel:[phone] [place] [facility] blurry vision (chief complaint)bl urry vision (chief complaint) Combined forms of age-related cataract, left eyeType 2 diab w moderate nonprlf diab rtnop w/o macular edemaPresenc e of pseudophakia Other secondary cataract, bilateral Aug- 6 Mario Estes. [address], [id number], [place]. tel:[phone] Referring Provider: Shyanne Colon, [address] [place] [address] [place], [place], [facility]. tel:[phone] [facility], [facility] [address] [place], [place], [id number], tel:[phone] [place] [facility] s/p cataract surgery (chief complaint)s/ p cataract surgery (chief complaint) No Information Julio Tan. [facility], [facility] [address] [place] [address], [id number], . tel:[phone] Referring Provider: Shyanne Colon, [address] [place] [address] [place], [place], [facility]. tel:[phone] [facility], [facility] [address] [place], [place], [id number], [phone] [facility] Vision improves gradually daily OD (chief complaint)Vi dustin improves gradually daily (chief complaint)te aring and photophobia (chief complaint)DZ (1,0) (chief complaint) Aphakia No Information Referring Provider: Shyanne Colon, [address] [place] [address] [place], [place], [facility]. tel:[phone] [facility], [facility] [address] [place], [place], [id number], tel:[phone] [place] [facility] CE Post-op (chief complaint)Sl owly healing OD (chief complaint)CE Post-op (chief complaint)Sl owly healing (chief complaint) Aphakia 5 Franc March. [facility], [facility] [address] [place], [place], [id number], [place]. tel:[phone] Referring Provider: Shyanne Colon, [address] [facility] [place], [address]. tel:[phone] [facility], [address] [place], [place], [id number], tel:[phone] [place] [facility] No Information Aug- 5 Franc March. [facility], [address] [place], [place], [id number], [place]. tel:[phone] Referring Provider: Shyanne Colon, [facility] [place], [facility]. tel:[phone] [facility], [address] [place], [place], [id number], tel:[phone] [place] [facility] no complaints OD (chief complaint)no complaints (chief complaint)Be sivance (3,0) Durezol (3,0) (chief complaint)NE AR AIM (chief complaint) Aphakia Aug- 5 Julio Tan. [facility], [address] [place], [place], [id number], [place]. tel:[phone] Referring Provider: Shyanne Colon, [facility] [place], [address]. tel:[phone] [facility], [address] [place], [place], [id number], tel:[phone] [place] [facility] No Information Aug- 5 Mario Estes. [address] [place] [address], [place], [place], [id number], [place]. [phone] Referring Provider: Shyanne Colon, [facility] [place], [facility]. tel:[phone] Offic Cons New/estab Mod-hi 60 [facility], [address] [place], [place], [id number], [place] tel:[phone] [place] [facility] painless, progressive loss of vision (chief complaint)pa inless, progressive loss of vision (chief complaint) Cataract, MatureDiabet ic Retinopathy NosBorderlin e OAG 0201 5 Mario Estes. [address], [id number], . [phone] Referring Provider: Shyanne Colon, [address] [place] [address] [place], [facility]. tel:[phone] Family History Family Member Type Diagnosis Age At Onset Problem (finding) Family history of glauc jacinda Payers Payer name Insurance type Covered green party ID Authoriza tion(s) No Information Social History Type Description Quantity Date Captured Comments Sex Female Smoking Status No Information Chief Complaint And Reason For Visit From encounter dated '11/29/2015 08:45'. DZ BID/Ilevro QD OS (chief complaint). Description: DZ BID/Ilevro QD OS no complaints OS>OD (chief complaint). Description: no complaints OS>OD vision is improved OS (chief complaint). Description: vision is improved OS DZ BID/Ilevro QD (chief complaint) no complaints (chief complaint) vision is improved (chief complaint) Reason For Referral Reason For Referral No Information Plan Of Treatment Date Type Action Status Patient Education Using Your Medicines: A fter Your Visit completed Patient Education Cataract Surgery: What to Expect at completed Patient Education Using Your Medicines: A fter Your Visit completed Patient Education Cataract Surgery: Befor e Your Surgery completed Patient Education Cataract Surgery: What to Expect at completed Patient Education Using Your Medicines: A fter Your Visit completed Patient Education Cataract Surgery: What to Expect at completed Patient Education Cataract Surgery: What to Expect at completed Patient Education Cataract Surgery: Befor e Your Surgery completed History Of Present Illness Encounter Date Complaint History Of Prese nt Illness vision is improved vision is imp roved OS DZ BID/Ilevro QD DZ BID/Ilevro Q D OS no complaints no complaints OS >OD eye is irritated this AM eye is irritated this AM OS vision is improved vision is imp roved OS DZ BID DZ BID OS vision is improved vision is imp roved OS blurry vision The 65 Year old female presents for evaluation of blurry vision in the right eye and left eye. The onset was gradual. It affects both near and far vision. The symptom is constant. It occurs all the time. The condition is moderate. Pt reports blurry vision OS causing difficulty with reading and driving. Pt currently wears glasses for distance vision only, takes glasses off to read. s/p CE OD near aim -2.75 OD Pt denies h/o longstanding reduced vision in either eye, eye turn, previous laser vision correction, or recent CL wear s/p cataract surgery The 64 Year old female presents for s/p cataract surgery in the right eye. Surgery on 09/28/14 with no complications. 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 Pt reports that her right eye feels better since the last visit and she feels like her eye is 75% better. (+) trace pain in the OD - often not present(+) blurry vision - constant. Pt still using old SRx prescription. No flashes, floaters, pain. Vision improves gradually daily Vision improves gradually daily OD DZ (1,0) Slowly healing Slowly healing O D CE Post-op The 64 Year old female presents for evaluation of CE Post-op in the right eye. Surgery performed on 09/08/14 no complaints no complaints OD NEAR AIM painless, progressiv e loss of vision The 64 Year old female presents for evaluation of painless, progressive loss of vision in the right eye and left eye. It started about 4 month(s) ago. The onset was gradual. It affects OU. The symptom is constant. It occurs at night. The condition is limiting patient's night driving. Pt recently saw Dr. Ibarra for retinal eval for . Mild bleeding was noted per pt. She will follow up in [address] Ibarra. Functional Status Date Functional Assessmen t No Information Instructions Date Instruction Additional Infor opal - Patient with excel lent outcome s/p CE OS with near aim; h/o extended PO inflammation OD s/p CE so advised slow taper. Will see Dr. Colon for CEE/refraction and will continue to follow as scheduled with Dr. Ibarra for retinal checks. Patient advised to RTO STAT if any ocular pain/redness/decreased vision/flashes/floaters, patient understands and is agreeable to plan - PRN - 2 weeks for presum ed final PO or immediately if any increased discomfort or redness or decreased vision, patient understands and is agreeable to plan. Patient with mild A/C reaction, no lens fragment, excellent VA, add NSAID, call STAT if any changing/worsening/persistent symptoms, patient understands and is agreeable to plan.Excellent refractive outcome with near aim OS. - Return to clinic in 2 Weeks. - 2 weeks IOP check, refraction - NEAR AIM (-2.75 OU) - PCIOL inplace OD, mild PC haze. Pt remains aysymptomatic. Continue to monitor. Related to Presence of pseudophakia - Patient desires im provement of visual symptoms which are reducing ability to perform activities of daily living. Recommend cataract extraction with implantation of intraocular lens. Discussion of risks, benefits, and alternatives as well as IOL options reviewed. Recommend monofocal IOL with plano aim. Patient understands there is no guarantee of completely uncorrected distance vision and as a result may require refractive aid. Patient understands there will be a need for refractive aid when performing near vision tasks. Patient is agreeable to this course of action. Schedule CE OS. Myopic/near aim -2.75D OS to match OD. Advised femto.PT WILL RECEIVE TOPICAL ANESTHESIA OS ONLY Related to Combined forms of age-related cataract, left eye - Diabetes type II: moderate background diabetic retinopathy, no signs of neovascularization noted. Discussed ocular and systemic benefits of maintaining blood sugar control.DME OD, no DME OS. Needs retinal clearance with Dr Ibarra prior to CE OS (seeing Stacey next week). 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 Ibarra. Related to Other secondary cataract, bilateral - -The patient is ex periencing functional difficulties in their other eye, with a healing but stable result in their operated eye. They wish to proceed with surgery in their other eye.Schedule Cataract Surgery for the 2nd eye - wishes to schedule for late October (again, near aim; -2.75); go with +19.0 SN60AT (-2.68 po refr expected); had +19.5 -AT OD; - -The patient is ex periencing functional difficulties in their other eye, with a healing but stable result in their operated eye. They wish to proceed with surgery in their other eye.Schedule Cataract Surgery for the 2nd eye - wishes to schedule for late October (again, near aim; -2.75); go with +19.0 SN60AT (-2.68 po refr expected); had +19.5 -AT OD; - Rebound iritis OD, increase DUrezol to TID and add Ilevro, return for follow up prior to CE OS (sched 10/13), may delay if vision/symptoms not improved. Also, would start NSAID immediately following PO OS and SLOW TAPER of steroid OU; - Return to clinic in 2 Weeks. - Educational materi als provided:Eye drops. Related to Aphakia - Rebound iritis OD, increase DUrezol to TID and add Ilevro, return for follow up prior to CE OS (sched 10/13), may delay if vision/symptoms not improved. Also, would start NSAID immediately following PO OS and SLOW TAPER of steroid OU; - Return to clinic in 2 Weeks. - Post op instructariadne barkley given and understood. Educational materials provided:Eye drops. Related to Aphakia - Near AIM OU with e xcellent corneal healing and visual outcome however residual NIKOLAY and ecchymosis. Monitor 2 weeks or at 1 day post op OS; can schedule CE OS as desired. - 1 week for check. Pt will post-pone CE OS for now. - Deep NIKOLAY OD 2' to retrobulbar block. Pt edu on prolonged healing time. may take 3-4 weeks to resolve completeley. Pt edu no asprin x 1 week. Next week add Ats - Educational materi als provided:Eye drops. Related to Aphakia - 1 week for check. Pt will post-pone CE OS for now. - Deep NIKOLAY OD 2' to retrobulbar block. Pt edu on prolonged healing time. may take 3-4 weeks to resolve completeley. Pt edu no asprin x 1 week. Next week add Ats - NPDR OU ; Montior with Dr. Ibarra as schedule.d Poor compliance can lead to blindness. Discussed risks of progression. Emphasized blood sugar control. Educational materials provided:Diabetic retinopathy. Related to Diabetic Retinopathy Nos - Patient desires im provement of visual symptoms which are reducing ability to perform activities of daily living. Recommend cataract extraction with implantation of intraocular lens. Discussion of risks, benefits, and alternatives as well as IOL options reviewed. Recommend monofocal IOL with NEAR aim. Clear discussion of loss of uncorrected reading ability with the implantation of an IOL with a plano aim. Additionally, patient understands there is no guarantee of completely uncorrected distance vision and as a result may require refractive aid. Patient understands there will be a need for refractive aid when performing near vision/distance vision tasks. Patient is agreeable to this couse of action. Related to Cataract, Mature - The patient was no anayeli to have one or more risk factors that put them at an increased risk for developing glaucoma; asymmetric IOP. It was decided that no treatment is necessary at this time; however, the need for continued and regular follow-up care was discussed. The patient was advised of the importance of regular follow-up care with their referring doctor, [facility], or both. The patient was advised that non-compliance with regular follow-up care may lead to permanent loss of vision, should glaucoma develop. The patient understands and is agreeable with this course of action. Related to Borderline OAG Assessments Type Assessment Date No Information Patient Care Teams Name Effective Dates (start - stop) Status Members No Information
--- OUTSIDE RECORDS SUMMARY | 2024-05-04 00:08 | XMS_ITS | Continuity of Care Document ---
Author Organization [facility] Address [address] [place] [address] Phone Care Team Providers Care Claim Review Medical Director Name Role Phone Ort Kristopher ROSA Unavailable Unavailable Allergies, Adverse Reactions, Alerts Substance Reaction Status Criticality Penicillins Anaphylaxis Active No Information Medications Medication Instructions Dosage Effective Dates (start - stop) Status Comments Aspir-81 mg tablet,delayed release take 1 tablet by oral route every day - Active metoprolol succinate ER 50 mg tablet,extended release 24 hr take 1 tablet by oral route every day 50 MG - Active Lipitor 20 mg tablet take 1 tablet by oral route every day 20 MG - Active Lexapro 10 mg tablet take 1 tablet by oral route every day 10 MG - Active Lantus Solostar U-100 Insulin 100 unit/mL (3 mL) subcutaneous pen inject by subcutaneous route per prescriber's instructions. Insulin dosing requires individualization. 0.00 - Active metformin 1,000 mg tablet take 1 tablet by oral route 2 times every day with morning and evening meals 1000 MG - Active Glyxambi 25 mg-5 mg tablet take 1 tablet by oral route every day in the morning 1.00 tablet - Active glimepiride 4 mg tablet take 1 tablet by oral route every day 4 MG - Active lisinopril 5 mg tablet take 1 tablet by oral route every day 5 MG - Active fluticasone propionate 50 mcg/actuation nasal spray,suspension inhale 2 spray by intranasal route every day in each nostril 100 MCG - Active Problems Condition Type Effective Dates (start - stop) Clini pako Status Comments No Known Problems Procedures Procedure Date OV, New Pt, Level III Diagnostic Nasal Endoscopy Removal Impacted Cerumen Req Instrumenta tion Advance Directives Directive Yes / No Effective Date File Name No Information Encounters Encounter Description Practice Location Reason(s) For Visit Diagnoses Date Provider Providers Copied on Encounter [facility], [address], [place], [place], [id number], tel:[phone] [facility] No Information 0 Orgeorge Summers. [address], [address] [place] [address], [id number] , [place]. tel: [phone] OV, New Pt, Level III [facility], [address], [place], [place], [id number], tel:[phone] [facility] Rhinitis (chief complaint) Chronic rhinitisNasal lesionImpacted cerumen, bilateral 0 Orgeorge Summers. [address], [address] [place] [address], [id number] , [place]. tel: [phone] Family History Family Member Type Diagnosis Age At Onset Family H /O Problem (finding) raised blood lipids Mother Problem (finding) depression Family H /O Problem (finding) depression Family H /O Problem (finding) hypertension Family H /O Problem (finding) alcoholism Family H /O Problem (finding) Diabetes Immunizations Vaccine Date Status Comments Influenza unspecified formulation completed Note: patient only r eported on this date, was given elsewhere ; Source: Source Unspecified Pneumococcal vaccine unspecified complete d Note: patient only reported on this date, was given elsewhere ; Source: Source Unspecified Payers Payer name Insurance type Covered green party ID Authoriza tion(s) No Information Social History Type Description Quantity Date Captured Comments Sex Female Smoking Status No Information Chief Complaint And Reason For Visit No Information Reason For Referral Reason For Referral No Information History Of Present Illness Encounter Date Complaint History Of Prese nt Illness Rhinitis Rhinitis (comments) lesion left Inferior nasal sill x 6 momild tender to touchslight increase in size over timeno drainage, no bleedingno LAD4 mo chronic rhinorrhea. clearno congestion, no PNDno nasal pain Functional Status Date Functional Assessmen t No Information Instructions Date Instruction Additional Infor mation Nasal steroid dailyI f no improvement in 1 month patient to follow-upConsider allergy consult Related to Chronic rhinitis Consult Dr. Saran merrill For possible excision and repair Related to Nasal lesion Assessments Type Assessment Date No Information Patient Care Teams Name Effective Dates (start - stop) Status Members No Information
--- OUTSIDE RECORDS SUMMARY | 2024-05-04 00:08 | XMS_ITS | Data Portability ---
Author Organization [place] [facility] Address [address] [place] [address] Assessment No assessment recorded. Plan of Treatment Reminders Order Date Submit Date Provider Last Modified By Organization Details Last Modified Time Details Appointments None record ed. Lab None record ed. Referral None record ed. Procedures None record ed. Surgeries None record ed. Imaging None record ed. Medication Orders None record ed. Patient TargetsNo targets recorded. Patient Instructions Encounter Date Encounter Id Patient Instructions Last Modified By Organization Details Last Modified Time 01/16/2020 [id number] Peripheral Arter ial Disease (PAD): Care Instructions [facility] Not available 01/24/2020 21:21:06 plantar fasciiti s: care instructions [facility] Not available 01/24/2020 21:21:06 plantar fasciiti s: exercises [facility] Not available 01/24/2020 21:21:06 learning about t ype 1 diabetes [facility] Not available 01/24/2020 21:21:06 type 1 diabetes: care instructions [facility] Not available 01/24/2020 21:21:06 toenail fungus: care instructions [facility] Not available 01/24/2020 21:21:06 -Discussed the etiology of Plantar Fasciitis and heel pain. We discussed the influence of equinus as it relates to heel pain. -Patient advised on icing and stretching. -Patient advised on ambulation in good supportive shoe gear with a good arch support at all times. -Patient advised to limit weight bearing and modify activity. -I recommended patient be casted for functional orthoses. -I explained that orthoses may decrease pronation/supinatio n, decrease stretch on the plantar fascia, increase shock absorption and further prevent surgery -I discussed the procedure for casting and fabrication of the devices, possibility of this being a noncovered service and importance in considering this treatment option. We will contact their insurance to determine if orthoses are covered. The patient's nails were trimmed to a manageable and functional level. The patient is high risk for ulceration and resultant infection and limb loss due to the nail deformities. The nails were trimmed today without any complications. The treatment provided today was performed as a prophylactic measure to prevent infection; as well as to relieve pain and for the temporary removal of the aforementioned deformity. I explained to the patient the etiology and treatment options for onychomycosis including {{periodic debridement*}} {{no treatment*}} {{oral and topical medications*}} {{laser treatment which is successful approximately 84% of the time and no guarantee has been given for total clarity of the nail plate*}}. {{A culture of the nail will be performed today}} {{Appropriate bloodwork will be ordered today.}} {{The possibility of recurrence was discussed*}} Proper foot hygiene and health addressed with the patient. The patient does not wish to pursue medicinal treatment. 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 I discussed the effects of diabetes with the patient and stressed regular visits for screening of foot pathology or deformities, to check for any circulatory changes, to evaluate for any neurological changes, and instruction sheet on footcare was given. Shoe gear evaluation was performed and recommendations were given. Diabetes can be dangerous to your feet? e denny a small cut can produce serious consequences. Diabetes may cause nerve damage that takes away the feeling in your feet. Diabetes may also reduce blood flow to the feet, making it harder to heal an injury or resist infection. Because of these problems, you may not notice a foreign object in your shoe. As a result you could develop a blister or a sore. This could lead to an infection or a nonhealing wound that could put you at risk for an amputation. To avoid serious foot problems that could result in losing a toe, foot or leg, follow these guidelines. Inspect your feet daily. Check for cuts, blisters, redness, swelling or nail problems. Use a magnifying hand mirror to look at the bottom of your feet. Call your doctor if you notice anything. Bathe feet in lukewarm, never hot, water. Keep your feet clean by washing them daily. Use only lukewarm water? t he temperature you would use on a baby. Be gentle when bathing your feet. Wash them using a soft washcloth or sponge. Dry by blotting or patting, and carefully dry between the toes. Moisturize your feet but not between your toes. Use a moisturizer daily to keep dry skin from itching or cracking. But DON? T moisturize between the toes? t hat could encourage a fungal infection. Never treat corns or calluses yourself. No ? b athroom surgery? or medicated pads. Visit your doctor for appropriate treatment. Wear clean, dry socks. Change them daily. Consider socks made specifically for patients with diabetes. These socks have extra cushioning, do not have elastic tops, are higher than the ankle and are made from fibers that wick moisture away from the skin. Wear socks to bed. If your feet get cold at night, wear socks. NEVER use a heating pad or a hot water bottle. Shake out your shoes and feel the inside before wearing. Remember, your feet may not be able to feel a pebble or other foreign object, so always inspect your shoes before putting them on. Keep your feet warm and dry. Don? t let your feet get wet in snow or rain. Wear warm socks and shoes in winter. Consider using an antiperspirant on the soles of your feet. This is helpful if you have excessive sweating of the feet. Never walk barefoot. Not even at home! Always wear shoes or slippers. You could step on something and get a scratch or cut. Take care of your diabetes. Keep your blood sugar levels under control. Don? t smoke. Smoking restricts blood flow in your feet. Get periodic foot exams. Seeing your foot and ankle surgeon on a regular basis can help prevent the foot complications of diabetes. [facility] Not available 01/24/2020 21:21:01 02/04/2020 [id number] Peripheral Arter ial Disease (PAD): Care Instructions [facility] Not available 02/06/2020 10:23:53 Cont Home exerci ses in effort to improve strength, decrease pain, restore function and prevent future injury. Cont daily stretching exercises as directed Avoid high impact activity Cont well fitting and supportive shoegear Avoid barefoot walking Heat / Ice as directed [facility] Not available 02/06/2020 10:23:22 04/21/2020 [id number] Cont Home exerci ses in effort to improve strength, decrease pain, restore function and prevent future injury. Cont daily stretching exercises as directed Avoid high impact activity Cont well fitting and supportive shoegear Avoid barefoot walking Heat / Ice as directed The patient's nails were trimmed to a manageable and functional level. The patient is high risk for ulceration and resultant infection and limb loss due to the nail deformities. The nails were trimmed today without any complications. The treatment provided today was performed as a prophylactic measure to prevent infection; as well as to relieve pain and for the temporary removal of the aforementioned deformity. I explained to the patient the etiology and treatment options for onychomycosis including {{periodic debridement*}} {{no treatment*}} {{oral and topical medications*}} {{laser treatment which is successful approximately 84% of the time and no guarantee has been given for total clarity of the nail plate*}}. {{A culture of the nail will be performed today}} {{Appropriate bloodwork will be ordered today.}} {{The possibility of recurrence was discussed*}} Proper foot hygiene and health addressed with the patient. The patient does not wish to pursue medicinal treatment. 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 [facility] Not available 04/26/2020 11:32:17 Reason for Referral None Reported. Procedures Surgical History Date Name Laterality Status Provider Name and Address Organization Details Recorded Time 0 RWP - Toenail Debridement (6-10) completed Clemente Green DPM [facility] [place], [address], [facility] [place] 04/26/2020 11:30:49 0 RWP - Toenail Debridement (6-10) completed Clemente Green DPM [facility] [place], [address], [facility] [place] 01/24/2020 21:18:37 excision of bunion completed Marielos SHEA - [facility] [place] 01/16/2020 11:19:24 section completed Marielos SHEA [facility] [place] 01/16/2020 11:19:32 Stent completed Marielos SHEA [facility] [place] 01/16/2020 11:19:47 Imaging Results None recorded. Procedure Notes None recorded. Medical Equipment None Reported. Allergies Allergen ID Allergen Name Allergen Category Reaction Reaction Severity Criticality Documentation Date Start Date Code Code System Note Provider Name and Address Organization Details Recorded Time 14979 Medicinal product containin g penicilli n and acting as antibacte rial agent (product) medicatio n Not available Not available Not available 01/16/2020 55953 05 SNOMED Marielos reddy [facility] [place] 0 11:18:05 Medications Name Sig Start Date Stop Date Status Note LastModified by Organization Details LastModified Time ultracare pen needles/33g x 5/32 33g x 4 mm misc active Not Available Not Available Not Available atorvastatin 40 mg tablet active Not Available Not Available Not Available fluconazole 150 mg tablet active Not Available Not Available Not Available metoprolol succinate ER 50 mg tablet,exten ded release 24 hr active Not Available Not Available Not Available omeprazole 40 mg capsule,marlena yed release active Not Available Not Available Not Available aspirin 81 mg tablet,delay ed release active Not Available Not Available N ot Available famotidine 20 mg tablet active Not Available Not Available Not Available metformin 1,000 mg tablet active Not Available Not Available Not Available clotrimazole -betamethaso ne 1 %-0.05 % topical cream active Not Available Not Available Not Available glimepiride 4 mg tablet active Not Available Not Available Not Available lisinopril 5 mg tablet active Not Available Not Available No t Available fluticasone propionate 50 mcg/actuatio n nasal spray,suspen dustin active Not Available Not Available Not Available Pneumovax-23 25 mcg/0.5 mL injection syringe PHARMACIST ADMINISTERE D IMMUNIZATIO N ADMINISTERE D AT TIME OF DISPENSING active Not Available Not Available N ot Available escitalopram 10 mg tablet active Not Available Not Available Not Available Prevnar 13 (PF) 0.5 mL intramuscula r syringe PHARMACIST ADMINISTERE D IMMUNIZATIO N ADMINISTERE D AT TIME OF DISPENSING active Not Available Not Available N ot Available Accu-Chek Jennifer Plus test strips active Not Available Not Available Not Available Accu-Chek Jennifer Plus Meter active Not Available Not Available Not Available Jardiance 25 mg tablet active Not Available Not Available No t Available Trulicity 1.5 mg/0.5 mL subcutaneous pen injector active Not Available Not Available Not Available Trulicity 0.75 mg/0.5 mL subcutaneous pen injector active Not Available Not Available Not Available Glyxambi 25 mg-5 mg tablet active Not Available Not Available Not Available Basaglar KwikPen U-100 Insulin 100 unit/mL (3 mL) subcutaneous active Not Available Not Available Not Available Shingrix (PF) 50 mcg/0.5 mL intramuscula r suspension, kit active Not Available Not Available Not Available OneTouch Delica Plus Lancet 33 gauge active Not Available Not Available Not Available Fluzone High-Dose 2019-20 (PF) 180 mcg/0.5 mL intramuscula r syringe PHARMACIST ADMINISTERE D IMMUNIZATIO N ADMINISTERE D AT TIME OF DISPENSING active Not Available Not Available N ot Available Vitals Date Recorded Body height Body mass index (BMI) Body weight Provider Name and Address Organization Details Last Updated DateTime 01/16/2020 157.48 cm 28 kg/m2 11588.63 g Marielos SHEA - [facility] [place] 01/16/2020 11:17:53 Date Recorded Body height Body mass index (BMI) Body weight Provider Name and Address Organization Details Last Updated DateTime 04/21/2020 157.48 cm 28 kg/m2 56009.63 g Annie Medina [place] [facility] [place] 04/21/2020 09:37:42 Social History Question Answer Notes LastModified by Organizat ion Details LastModified Time Tobacco Smoking Status Former Smoker SHABBIR [facility] [place] 01/16/2020 11:18:58 What Is Your Level Of Alcohol Consumption? Occasional Information not available 01/16/2020 Do You Or Have You Ever Used E-cigarettes Or Vape? Never Used Electronic Cigarettes Information not available 01/16/2020 Marital Status Informatio n not available 01/16/2020 Do You Or Have You Ever Used Smokeless Tobacco? Never Used Smokeless Tobacco Information not available 01/16/2020 Sex: Unknown Functional Status None recorded. Mental Status None recorded. Family History Relationship Description Onset Age of this Age Resolved Age Notes LastModified by Organization Details LastModified Time Father Malignant tumor of lung awildman Not available 2019 11:18:39 Mother Diabetes mellitus awildman Not available 2019 11:18:52 Sister Diabetes mellitus awildman Not available 2019 11:18:52 Medical History Condition Response Coronary Artery Disease N Gout N MRSA N Blood Transfusion N Hernia N Depression N Glaucoma N Lung Disease N Pneumonia N Pacemaker N Edema N Deep Vein Thrombosis N Varicose Veins N Arthritis N Blood Clot N [place] Bite N Cancer N Stroke N Leg or Foot Ulcers N Raynaud's Disease N Polio N High Cholesterol Y Liver Disease N Organ Transplant N Rheumatoid Arthritis N Dialysis N Fibromyalgia N Foot Deformity N Headaches N Kidney Disease N Anxiety N Acid Reflux N Chemotherapy N Thyroid Problems N Anemia N Back Pain N Fainting Spells N Stomach Ulcers N Diabetes Y Cataracts N Bleeding Disorder N Seizures/Epilepsy N Tuberculosis N AIDS/HIV N Heart Attack N Asthma N Allergies N Substance Abuse N Peripheral Vascular Disease N Hepatitis N Heart Disease N Bronchitis N Pulmonary Embolism N Hypertension Y Osteoporosis N Gynecological HistoryNo gynecological history recorded. 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 Type 1 demarco betes mellitus 73477754 E10.9 [id number] Clemente Green DPM [facility] [address] [place] [address] 02/04/2020 10:20:33 02/06/2020 09:36:13 Plantar fasciitis 719678068 M72.2 Peripheral vascular disease 448369934 I73.89 Onychomycosis 261031960 B35.1 Pain in toe 145262662 M7 9.675 M79.674 Equinus co ntracture of the ankle 832725341 M24.571 M24.572 Talipes valgus 54028421 Q66.6 Type 1 demarco betes mellitus 31058950 E10.9 [id number] Clemente Green DPM [facility] [address] [place] [phone] 04/21/2020 09:23:43 04/21/2020 10:09:16 Plantar fasciitis 680592014 M72.2 Peripheral vascular disease 412376140 I73.89 Onychomycosis 141986175 B35.1 Pain in toe 730821720 M7 9.675 M79.674 Equinus co ntracture of the ankle 652903560 M24.571 M24.572 Talipes valgus 53552373 Q66.6 Type 1 demarco betes mellitus 03999660 E10.9 Health Concerns Section Related Observation LastModified by Organization Detai ls LastModified Time None Recorded Concern Status LastModified by Organization Details LastModified Time None Recorded Advance Directives Directive None Recorded Payers Encounter Date Sequence Insurance Name Policy Number Policy Pop Covered Member ID Pop Member ID Guarantor Name 01/16/2020 1 [employer] (MEDICARE REPLACEMENT PPO) [id number] Claudia cunningham 02/04/2020 1 [employer] (MEDICARE REPLACEMENT PPO) [id number] Claudia cunningham 04/21/2020 1 [employer] (MEDICARE REPLACEMENT PPO) [id number] Claudia cunningham Notes Date Note Type Note Provider Name and Address Organization Details Recorded Time 01/16/2020 text/html Heel PainReporte d bypatient.Location: left plantar Quality:dull; deep Severity:moderate Timing:gradual; recurrent Alleviating Factors:rest; cessation of activity Aggravating Factors:weight bearing Associated Symptoms:no redness; no warmth; no ecchymosis; no swelling; no fever; no chills;left heel pain improves as walking continues;left heel pain plantar-medial;left heel pain worst with first few steps Previous Surgery:none Prior Imaging:none Previous Injections:none Previous Treatment:none Clemente Green DPM [address] [place] [phone], [facility] 01/24/2020 21:21:21 02/04/2020 text/html Heel PainReporte d bypatient.Location: left plantar Quality:dull; improving Severity:mild Timing:gradual Alleviating Factors:rest; cessation of activity Aggravating Factors:weight bearing Associated Symptoms:no redness; no warmth; no ecchymosis; no swelling; no fever; no chills;left heel pain improves as walking continues;left heel pain plantar-medial;left heel pain worst with first few steps Previous Treatment:stretchin g; helped significantly Clemente Green DPM [address] [place] [phone], [facility] 02/06/2020 10:23:56 04/21/2020 text/html Heel PainReporte d bypatient.Location: left plantar (f/u) Quality:dull; improving Severity:no pain Timing:gradual; recurrent Alleviating Factors:rest; cessation of activity Aggravating Factors:weight bearing Associated Symptoms:no redness; no warmth; no ecchymosis; no swelling; no fever; no chills; no heel pain Previous Treatment:helped significantly Clemente Green DPM [address] [place] [phone], [facility] 04/26/2020 11:32:39 OBGyn Episode No OBEpisode recorded.
--- OUTSIDE RECORDS SUMMARY | 2024-05-04 00:08 | XMS_ITS | Data Portability ---
Author Organization [facility], [facility] Address [address] [address] Care Team Providers Care Strategy Director Name Role Phone CAR JUAN Silver Lap Machine Tender JULIENNE TOBIAS Silver Lap Machine Tender SAKINA SANCHEZ Primary Care Provider Assessment Encounter Date Assessment Date Assessment LastModified by Organization Details LastModified Time 06/27/2021 06/27/2021 Consent for video Tele Health visit obtained Not available 06/27/2021 15:16:28 09/26/2021 09/26/2021 Consent for video Tele Health visit obtained Not available 09/26/2021 16:00:27 12/26/2021 12/26/2021 > 30 minutes spent reviewing prior records, results and counseling. Consent for video Tele Health visit obtained Not available 12/26/2021 15:23:30 01/23/2022 01/23/2022 > 30 minutes spent reviewing prior records, results and counseling. Consent for video Tele Health visit obtained Not available 01/23/2022 13:14:34 Plan of Treatment Reminders Order Date Submit Date Provider Last Modified By Organization Details Last Modified Time Details Appointments None recorded. 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 The treatment plan: 1. Imaging surveillan ce > Plan for CT with pancreatic protocol within 3 months (can be guided by tumor markers to be obtained)2 . Discussion in TB, given HX of prior pancreatit is and EUS results could likely just be inflammato ry mass3. Send tumor markers4. Needs follow-up with Dr. Juan 2021 chandana 42 Dayna Yang, [address] [place], [address], 2 10:45:00 Procedures None recorded. Surgeries surgical endoscopic ultrasound (SURG) 2021 [email or web address] Not available 3 10:58:[address], abdomen + pelvis, w/wo contrast 2021 [facility] Radiology Department, [address] [place], [address], 3 05:01:44 CT, abdomen + pelvis, w/wo contrast 2021 [facility] Radiology Department, [address] [place], [address], 3 05:01:47 Medication Orders omeprazole 40 mg capsule,de layed release 2021 LARISSA [facility], [address] [place] [address], [id number], 2 17:01:07 Creon 24,000-76, 000-120,00 0 unit capsule,de layed release 2021 022 [facility], [address] [place] [address], [id number], 15:26:00 Patient TargetsNo targets recorded. Patient InstructionsNo instructions recorded. Reason for Referral Oncology Patient Navigator f or Pancreatic duct disorder Patient was presented at the GI Tumor Board Conference on 09/20/21. The treatment plan: 1. Imaging surveillance > Plan for CT with pancreatic protocol within 3 months (can be guided by tumor markers to be obtained)2. Discussion in TB, given HX of prior pancreatitis and EUS results could likely just be inflammatory mass3. Send tumor markers4. Needs follow-up with Dr. Juan Referring Physician: Car Juan, Gastroenterology, Encounter Date: 08/15/2021 Results Created Date Observation Date Name Description Value Unit Range Abnormal Flag Note LastModifiedBy Organization Detail LastModifiedTime 07/24/19 22 07/24/2021 SARS COV 2 RNA(C OVID 19), QUALI TATIV E NAAT sars cov 2 RNA NOT DETECT ED not detect ed normal A Not Detec anayeli resul t means that SARS- CoV-2 RNA was not prese nt in the speci men above the limit of detec tion. A Not Detec anayeli resul t does not rule out the possi bilit y of COVID -19 and shoul d not be used as the sole basis for treat ment or patie nt manag ement decis ions. If COVID -19 is still suspe cted, based on expos ure histo ry toget her with other clini pako findi ngs, re-te sting shoul d be consi dered in the shilpi xt of clini pako obser vatio ns and epide miolo gical data for patie nt manag ement decis ions. Test Metho d: Nucle ic Acid Ampli ficat ion Test inclu ding rever se trans cript ion polym erase chain react ion (RT-P CR) and trans cript ion media anayeli ampli ficat ion (TMA) . The test metho d meets the [place] Cente rs for Disea se Contr ol and preve ntion ([facility]) pre depar ture and arriv al requi remen t for viral test for COVID -19 dated 2020. Testi ng requi remen ts for anthony girard may rowland e with time. The patie nt is respo nsibl e for deter minin g the test requi remen ts for each natio n while they are anthony girard. This test has been autho rized by the FDA under an Emerg ency Use Autho rizat ion (EUA) for use by autho rized labor atori es. Plechavez e hellen w the Fact Sheet s and FDA autho rized label ing avail able for healt h care provi ders and patie nts using the follo wing websi brian: https ://zenobia w.roberto stdia gnost ics.c om/ho me/Co vid-1 9/HCP /NAAT /fact -shee t2 https ://zenobia w.que stdia gnost ics.c om/ho me/Co vid-1 9/Pat ients /NAAT / fact- sheet 2 Due to the curre nt publi c healt h emerg ency, [facility] is accep regla [place] es from appro priat e clini pako sourc es colle cted using wide varie ty of swabs and trans port media for COVID -19. Not detec anayeli test resul ts deriv ed from speci mens recei era in non- comme rcial ly manuf actur ed viral colle ction kits or those not yet autho rized by FDA for COVID -19 testi ng shoul d be cauti ously evalu ated and take extra preca ution s such as addit ional clini pako monit oring , inclu ding colle ction of an addit ional speci men. Addit ional infor kathie venegas about COVID -19 can be found at the [facility] websi te: www.Q uestD iagno stics .com/ Covid 19. Not Available [facility] [address] [place], [address], 07/24/2021 10:13:28 07/27/1907/2607/26/2021 SURGI PAKO PATHO LOGY results [facility] AT[facility] MEDIC INE AND PATHO LOGY [address] [place] [address] [phone] Fax: Patie nt: AGUILAR DIANEE LL, MOI SURESH Speci men #:[id number] Med Rec #: [id number] Hospi laure #: [id number] /A ge [id number] (Age: 71) Sex: F Locat ion: 2D Colle cted: 2021 Physi eb( s): LEIGHTON Stevenson M.D. Recei era: 2021 Repor anayeli: 2021 SPECI MEN: A: PANCR EATIC MASS FNA OPERA TIVE PROCE DURE: EGD, EUS PRE-O PERAT WILFRED DIAGN OSIS: PANCR EATIC MASS POST- OPERA TIVE DIAGN OSIS: PANCR EATIC MASS GROSS DESCR IPTIO N: The speci men is recei era in forma priya label ed Panc reati c Mass, FNA and consi sts of multi ple fragm ents of pink- collado to red soft tissu e and blood clot measu ring 1 cm x 0.6 cm x 0.2 cm in aggre gate. The entir e speci men is submi tted in casse tte label ed A1. CAD/C AD/04/06 22 FINAL DIAGN OSIS: PANCR EATIC MASS FNA: CHRON IC ACTIV MEGHANN INFLA MED FIBRO US TISSU E AND BLOOD . NO EPITH ELIAL COMPO NENT PRESE NT. Note: Case was revie wed by Dr. Kaylie Fernandez who concu rred with the diagn osis. COMME NT: Immun ostai ns for pancy toker atin is negat wiflred and CD163 highl ighte d the histi ocyte s. Immun ostai ns suppo rt the diagn osis. Contr ols are satis facto ry. CPT: 92408 x 1, 26988 x1, 57017 x1 Repor t Elect mahad Reyes d YASH HUANG M.D. dmy/ 022 Not Available [facility] Pathology Department [address] [place], [address], 07/30/2021 15:06:04 12/21/19 22 12/21/2021 COMPR EHENS WILFRED METAB OLIC PANEL glucose 164 mg/dL 65-139 high Non-f astin g refer ence inter leah Not Available [facility] [address] [place], [address], 12/21/2021 04:31:05 12/21/19 22 12/21/2021 COMPR EHENS WILFRED METAB OLIC PANEL urea nitrogen (BUN) 13 mg/dL 7-25 normal Not Available [facility] [address] [place], [address], 12/21/2021 04:31:05 12/21/19 22 12/21/2021 COMPR EHENS WILFRED METAB OLIC PANEL creatinine 0.87 mg/dL 0.60-1 .00 normal Not Available [facility] [address] [place], [address], 12/21/2021 04:31:05 12/21/19 22 12/21/2021 COMPR EHENS WILFRED METAB OLIC PANEL eGFR 71 mL/mi n/1.7 3m2 > or = 60 normal The eGFR is based on the CKD-E PI 2020 equat ion. To calcu late the new eGFR from a previ ous Creat inine or Cysta tin C resul t, go to https ://ww w.kid brock.o rg/terry trimble s/ kdoqi /gfr% 5Fcal culat or Not Available [facility] [address] [place], [address], 12/21/2021 04:31:05 12/21/19 22 12/21/2021 COMPR EHENS WILFRED METAB OLIC PANEL BUN/creatini ne ratio NOT APPLIC ABLE (calc ) 6-22 Not Available [facility] [address] [place], [address], 12/21/2021 04:31:05 12/21/19 22 12/21/2021 COMPR EHENS WILFRED METAB OLIC PANEL sodium 139 mmol/ L 135-14 6 normal Not Available [address] [place], [address], 12/21/2021 04:31:05 12/21/19 22 12/21/2021 COMPR EHENS WILFRED METAB OLIC PANEL potassium 5.0 mmol/ L 3.5-5. 3 normal Not Available [address] [place], [address], 12/21/2021 04:31:05 12/21/19 22 12/21/2021 COMPR EHENS WILFRED METAB OLIC PANEL chloride 103 mmol/ L 98-110 normal Not Available [address] [place], [address], 12/21/2021 04:31:05 12/21/19 22 12/21/2021 COMPR EHENS WILFRED METAB OLIC PANEL carbon dioxide 28 mmol/ L 20-32 normal Not Available [address] [place], [address], 12/21/2021 04:31:05 12/21/19 22 12/21/2021 COMPR EHENS WILFRED METAB OLIC PANEL calcium 9.1 mg/dL 8.6-10 .4 normal Not Available [address] [place], [address], 12/21/2021 04:31:05 12/21/19 22 12/21/2021 COMPR EHENS WILFRED METAB OLIC PANEL protein, total 7.2 g/dL 6.1-8. 1 normal Not Available [address] [place], [address], 12/21/2021 04:31:05 12/21/19 22 12/21/2021 COMPR EHENS WILFRED METAB OLIC PANEL albumin 3.6 g/dL 3.6-5. 1 normal Not Available [address] [place], [address], 12/21/2021 04:31:05 12/21/19 22 12/21/2021 COMPR EHENS WILFRED METAB OLIC PANEL globulin 3.6 g/dL_ (calc ) 1.9-3. 7 normal Not Available [address] [place], [address], 12/21/2021 04:31:05 12/21/19 22 12/21/2021 COMPR EHENS WILFRED METAB OLIC PANEL albumin/glob ulin ratio 1.0 (calc ) 1.0-2. 5 normal Not Available [address] [place], [address], 12/21/2021 04:31:05 12/21/19 22 12/21/2021 COMPR EHENS WILFRED METAB OLIC PANEL bilirubin, total 0.5 mg/dL 0.2-1. 2 normal Not Available [address] [place], [address], 12/21/2021 04:31:05 12/21/19 22 12/21/2021 COMPR EHENS WILFRED METAB OLIC PANEL alkaline phosphatase 83 U/L 37-153 normal Not Available [address] [place], [address], 12/21/2021 04:31:05 12/21/19 22 12/21/2021 COMPR EHENS WILFRED METAB OLIC PANEL AST 14 U/L 10-35 normal Not Available [facility] [address] [place], [address], 12/21/2021 04:31:05 12/21/19 22 12/21/2021 COMPR EHENS WILFRED METAB OLIC PANEL ALT 11 U/L 6-29 normal Not Available [address] [place], [address], 12/21/2021 04:31:05 06/21/19 22 06/21/2021 MRI, pancr eas, w/wo contr ast DATE OF EXAM: Jun 21 2021 MRI 9993 - MRI ABDO PANCRE W/WO ACCESS ION# [id number] EXAM: MRI ABDO PANCRE W/WO CLINIC AL INDICA TION: Diseas e of biliar y tract, unspec ified TECHNI QUE: MRI of the abdome n was perfor med with specia l attent ion to the pancre as withou t and with intrav enous contra st. Compar madonna: CT abdome n and pelvis 021. FINDIN GS: Liver: No intrin sic lesion . Howeve r the peripo rtal mass descri bed below may invade the edge of the liver. Hepati c Vascul ature: The hepati c veins and portal veins are patent . There is extrin sic narrow ing of the extrah epatic main portal vein by mass descri bed below. Biliar y System : Contra cted gallbl adder. Mild intrah epatic biliar y ductal dilata tion and dilate d common bile duct to approx imatel y 12 mm. The duct tapers distal ly and there could be minima l strict ure. No eviden ce for choled ocholi thiasi s. Spleen : Within normal limits . Pancre as: The pancre atic duct stent has been remove d. The pancre atic duct has a beaded and irregu lar appear ance, compat ible chroni c pancre atitis . There is an 8 x 4 mm cystic lesion in the pancre atic head, series 12 image 13. Adrena l Glands : 21 mm right- sided adrena l nodule , stable . This lesion is not demons tratin g enhanc ement on arteri al or delaye d phase imagin g, and does demons trate loss of signal on oppose d phase imagin g sugges tive of micros copic fat and repres ents an adenom a. Kidney s: Within normal limits . Aorta: Within normal limits . Lymph nodes: See below. Ascite s: No eviden ce of ascite s. Bowel: No abnorm ality identi fied given techni que. Retrop eriton eum: Within normal limits . Abdomi nal Wall: No focal lesion . Osseou s Struct ures: No signif icant marrow signal abnorm ality. Other: There is an infilt rating mass in the peripo rtal region with irregu lar enhanc ement and centra l necros is. The mass is measur ing approx imatel y 3.5 x 2.7 cm (serie s 8 image 25). The mass appear s to be contig uous with the distal esopha suhas, and abutti ng and insepa rable from the medial aspect of the liver and may also be the involv ing the bo of the diaphr agm. There is abnorm al enhanc ement in the distal esopha suhas suspic ious for mass. The celiac axis is extend ing throug h the mass and appear s somewh at narrow ed but is patent . The portal vein is also extend ing throug h the mass, and is narrow ed but patent . IMPRES ANGEL: Infilt rating and irregu lar mass in the peripo rtal region with centra l necros is which appear s to be contig uous with the distal esopha suhas and abutti ng the medial aspect of the liver and possib ly also involv ing the bo of the diaphr agm. The differ ential for this lesion would includ e a primar y esopha geal cancer versus other malign ant deirdre mass. Dilate d common bile duct withou t eviden ce for choled ocholi thiasi s. Possib le distal strict uring. Irregu lar pancre atic duct with a small cyst.. Right adrena l nodule repres ents an adenom a and is stable . Arrang ements were made to fax the result s of the study to the referr ing physic liu on a priori ty basis with a confir darren teleph one call. DICTAT ED BY RESIDE NT PHYSIC LIU OR PHYSIC LIU ASSIST ANT: Gino ruffin MD 06/21/19 12:37 PM Images and Interp retati on/Pro cedure Review ed by: Jackelin meyer MD Dictat ed By: GINO ELIZONDO On: Jun 21 2021 11:10A I HAVE INTERP RETED THIS/T HESE EXAMIN ATION( S) AND AGREE WITH THE FINDIN GS NOTED ABOVE. This docume nt has been electr onical ly signed . Radiol ogist: UNDERJACKELIN DEMPSEY M.D. On: Jun 21 2021 12:44P Transc riptio nist: RADW Transc ribe Date/T lyla: Jun 21 2021 11:10A [id number] [email or web address] [facility] Radiology Department [address] [place], [address], 06/25/2021 12:52:17 06/21/19 22 11/08/2020 CT, abdom en + pelvi s, w/ contr ast No observ ation record ed. [facility] [address] [place], [address], 06/28/2021 11:03:49 01/02/20 22 01/01/2022 CT, abdom en + pelvi s, w/ contr ast DATE OF EXAM: Jan [address] 0022 - CT ABDOME N AND PELVIS W ACCESS ION# [id number] EXAM: CT ABDOME N AND PELVIS W CLINIC AL INDICA TION: Diseas e of pancre as, unspec ified TECHNI QUE: Axial CT images of the abdome n and pelvis were obtain ed after the admini strati on of intrav enous contra st. Sagitt al and ny l recons tructi ons were perfor med. CT was perfor med using one or more dose reduct ion techni ques includ ing automa anayeli exposu re contro l, adjust ment of the mA and/or kV accord ing to patien t size, and/or use of iterat wilfred recons tructi on techni que. IV Contra st: Intrav enous contra st was admini stered . Oral Contra st: Oral contra st was admini stered . Compar madonna: MRI from 06/21/19 22, CT from 021. Count of known CT scans and NM Myocar dial Perfus ion studie s in last 12 months (Quali ty Measur e G9321) : None FINDIN GS: Lung Bases: There is new patchy mosaic attenu ation at the lung bases. There are also new patchy reticu lar opacit ies in a periva scular distri bution . Liver: Within normal limits . Biliar y System : Contra cted gallbl adder. Decrea sed biliar y dilata tion with common bile duct measur ing 10 mm versus 12 mm on MRI. Hepati c Vascul ature: The hepati c veins and portal veins are patent . Spleen : Within normal limits . Pancre as: No acute inflam mation or signif icant atroph y. The 8 x 4 mm cystic lesion in the pancre atic head seen on prior MRI is not well visual ized. Pancre atic duct is not dilate d. Adrena l Glands : Stable 20 mm right adrena l nodule previo usly shown to repres ent adenom a. Kidney s, Ureter s, and Bladde r: Within normal limits . Lymph nodes: Tiny gastro hepati c ligame nt lymph nodes measur ing up to 6 mm. Aorta/ Retrop eriton eum: Athero sclero tic calcif icatio n of the aorta. Bowel: Within normal limits . Pelvic Organs : Uterus is absent and neithe r ovary is visual ized. Abdomi nal/Pe lvic Wall: Within normal limits . Ascite s: No eviden ce of ascite s. Osseou s Struct ures: No worris ome lytic or blasti c bony lesion . Discog enic and spondy lotic change s of the lumbos acral juncti on. Other Findin gs: The infilt rative mass in the peripo rtal and perice liac region presen t on prior MRI but not on earlie r CT shows some improv ement, measur ing 29 x 29 mm (2:24) , is a 35 x 27 mm. This area is again into the distal esopha suhas. It is insepa rable from the medial margin of the liver and the bo of the diaphr agm. The celiac axis extend s throug h the mass with minima l narrow ing of the celiac axis and hepati c artery . The portal vein again extend s throug h the mass with decrea sed mild narrow ing. IMPRES ANGEL: Slight improv ement in infilt rative mass in the upper abdome n involv ing the peripo rtal and perice liac region , presum ably the diaphr agm, and surrou nding and narrow ing celiac axis and superi or mesent susie artery . Decrea sed biliar y dilata tion. There is new patchy mosaic attenu ation and patchy reticu lar opacit y at the lung bases, suspec anayeli to be postin fectio us. Additi onal findin gs above. Dictat ed By: JACKELIN STILES M.D. On: Jan 01 2022 2:03P I HAVE INTERP RETED THIS/T HESE EXAMIN ATION( S) AND AGREE WITH THE FINDIN GS NOTED ABOVE. This docume nt has been electr onical ly signed . Radiol ogist: JACKELIN STILES M.D. On: Jan 01 2022 2:28P Transc riptio nist: RADW Transc ribe Date/T lyla: Jan 01 2022 2:03P [id number] [email or web address] [facility] Radiology Department [address] [place], [address], 01/23/2022 13:14:05 Result Notes None recorded. Problems Name Problem SNOMED Code Status Onset Date Resolution Date Notes Provider Name and Address Organization Details Recorded Time Pancreatic duct disorder 615118349 Active 021 Dayna Yang [address] [place] [address], [id number] [place] [address] 13:01:39 Problem Notes None recorded. Procedures Surgical History Date Name Laterality Status Provider Name and Address Organization Details Recorded Time 1 Nursing Points - Established Patient Level 1 completed Chloé Vigil [facility] 12/20/2020 12:56:59 1 Nursing Points - New Patient Level 2 completed Gissel Arnold [facility] 07/12/2020 14:19:51 6 placement of stent in cardiac conduit completed Gissel Arnold [facility] 07/12/2020 14:18:49 9 delivery completed Gissel Arnold [facility] 07/12/2020 14:17:47 Unlisted px foot/toes completed Gissel Arnold [facility] 07/12/2020 14:17:53 Cataract Surgery completed Gissel Elytheo [facility] 07/12/2020 14:19:08 Imaging Results Imaging Date Name Status LastModified by Organiz ation Details LastModified Time 06/21/2021 MRI, pancreas, w/wo contrast completed [email or web address] [facility] Radiology Department [address] [place], [address], 06/25/2021 12:52:17 11/08/2020 CT, abdomen + pelvis, w/ contrast completed [email or web address] [address], [address], 06/28/2021 11:03:49 01/01/2022 CT, abdomen + pelvis, w/ contrast completed [email or web address] [facility]iology Department [address] [place], [address], 01/23/2022 13:14:05 Procedure Notes None recorded. Medical Equipment None Reported. Allergies Allergen ID Allergen Name Allergen Category Reaction Reaction Severity Criticality Documentation Date Start Date Code Code System Note Provider Name and Address Organization Details Recorded Time 043120 Medicinal product containin g penicilli n and acting as antibacte rial agent (product) medicatio n Not available Not available Not available 07/12/2020 52829 05 SNOMED Gissel Arnold [facility] 14:10:47 Medications Name Sig Start Date Stop Date Status Note LastModified by Organization Details LastModified Time ultracare pen needles/31g x 5/16 31g x 8 mm misc active Not Available Not Available Not Available atorvastati n 40 mg tablet Take 1 tablet every day by oral route. active Not Available Not Available No t Available metoprolol succinate ER 50 mg tablet,exte nded release 24 hr active Not Available Not Available Not Available ondansetron HCl 4 mg tablet Take 2 tablets 3 times a day by oral route as needed. active Not Available Not Available No t Available Gas-X Extra Strength 125 mg capsule Take 1 capsule every day by oral route as needed. active Not Available Not Available No t Available sulfamethox azole 800 mg-trimetho prim 160 mg tablet active Not Available Not Available Not Available omeprazole 40 mg capsule,del ayed release Take 1 capsule every day by oral route for 90 days. active Not Available Not Available No t Available aspirin 81 mg tablet,marlena yed release Take 1 tablet every day by oral route. active Not Available Not Available No t Available lidocaine-p rilocaine 2.5 %-2.5 % topical cream 12/20 completed Not Available Not Available Not Available oxycodone-a cetaminophe n 5 mg-325 mg tablet active Not Available Not Available No t Available alprazolam 0.25 mg tablet active Not Available Not Available Not Available famotidine 20 mg tablet active Not Available Not Available Not Available metformin 1,000 mg tablet Take 1 tablet twice a day by oral route. active Not Available Not Available No t Available lisinopril 10 mg tablet Take 0.5 tablets every day by oral route. 12/20 completed Not Available Not Available Not Available glimepiride 4 mg tablet Take 1 tablet every day by oral route. active Not Available Not Available No t Available omeprazole 20 mg capsule,del ayed release Take 1 capsule every day by oral route. active Not Available Not Available No t Available lisinopril 5 mg tablet active Not Available Not Available Not Available azelastine 137 mcg (0.1 %) nasal spray [place] 1 spray every day by intranasa l route. 12/20 completed Not Available Not Available Not Available fluticasone propionate 50 mcg/actuati on nasal spray,suspe nsion 12/20 completed Not Available Not Available Not Available sertraline 50 mg tablet active Not Available Not Available Not Available Mylanta 200 mg-200 mg-20 mg chewable tablet Take by oral route. 12/20 completed Not Available Not Available Not Available T50-Gylxc 1,000 mcg tablet Take 1 tablet every day by oral route. active Not Available Not Available No t Available escitalopra m 10 mg tablet active Not Available Not Available Not Available BD Ultra-Fine Mini Pen Needle 31 gauge x 07/31 active Not Available Not Available Not Available metoprolol succinate 40mg daily 12/20 completed Not Available Not Available Not Available Creon 24,000-76,0 00-120,000 unit capsule,del ayed release Take 2 capsules 3 times a day by oral route for 90 days. active Not Available Not Available No t Available D3 DOTS 125mcg daily active Not Available Not Available No t Available azelastine 137 mcg-flutica sone 50 mcg/spray nasal spray 12/20 completed Not Available Not Available Not Available Jardiance 25 mg tablet Take 1 tablet every day by oral route. active Not Available Not Available No t Available Trulicity 1.5 mg/0.5 mL subcutaneou s pen injector Inject 0.5 mL every week by subcutane ous route. active Not Available Not Available No t Available vit C 1,000 mg-multivit -minerals-M SM 1,000 mg oral efferv powder pack Take 1 packet every day by oral route. active Not Available Not Available No t Available Basaglar KwikPen U-100 Insulin 100 unit/mL (3 mL) subcutaneou s active Not Available Not Available Not Available Dexcom G6 Sensor device active Not Available Not Available Not Available Dexcom G6 Dye Machine Tender active Not Available Not Available Not Available Dexcom G6 Transmitter device active Not Available Not Available Not Available ID NOW COVID-19 Test Kit TEST DIRECTED active Not Available Not Available No t Available Vitals None Recorded Social History Question Answer Notes LastModified by Organizat ion Details LastModified Time Tobacco Smoking Status Former Smoker quit 8 yrs ago Gissel Arnold [facility] 07/12/2020 14:17:11 What Is Your Level Of Alcohol Consumption? None Information not available 07/12/2020 What Is Your Level Of Caffeine Consumption? Occasional 1 Cup Coffee Per Day Information not available 12/20/2020 In The 14 Days Before Symptom Onset, Have You Had Close Contact With A Laboratory-confir med COVID-19 While That Case Was Ill? No Information not available 12/20/2020 In The 14 Days Before Symptom Onset, Have You Had Close Contact With A Person Who Is Under Investigation For COVID-19 While That Person Was Ill? No Information not available 12/20/2020 Have You Been To An Area Known To Be High Risk For COVID-19? No Information not available 12/20/2020 Are You Deaf Or Do You Have Serious Difficulty Hearing? No Information not available 12/20/2020 What Type Of Diet Are You Following? REGULAR Information not available 12/20/2020 Which Illicit Or Recreational Drugs Have You Used? None Information not available 07/12/2020 What Is Your Occupation? Retired Information not available 07/12/2020 Have There Been Any Changes To Your Family Or Social Situation? Yes Has MS Information not available 12/20/2020 When Did You Quit Smoking? 6-10yearssinc elastcigarett e Information not available 12/20/2020 Live Alone Or With Others? With Others Information not available 07/12/2020 Preferred Language Welsh Information not available 07/12/2020 Language(s) Spoken At Home Welsh Information not available 12/20/2020 Barriers Noted No Informatio n not available 12/20/2020 Emotional State Depressed Informati on not available 12/20/2020 Cultural Barrier No Informat ion not available 12/20/2020 Hearing Intact Yes Informatio n not available 12/20/2020 Language Barrier No Informat ion not available 07/12/2020 Language(s) Understood Welsh Information not available 12/20/2020 Literacy Barrier No Informat ion not available 12/20/2020 Memory Intact Yes Information not available 12/20/2020 Physical Limitations No Information not available 12/20/2020 Vision Intact Yes With Glasses On Information not available 12/20/2020 [employer] Construction Equipment [employer] Requested In Exam Room No Information not available 12/20/2020 Marital Status Informatio n not available 07/12/2020 What Is Your Relationship Status? Information not available 12/20/2020 Do You Feel Stressed (tense, Restless, Nervous, Or Anxious, Or Unable To Sleep At Night)? [id number] Information not available 12/20/2020 Do You Or Have You Ever Used Any Other Forms Of Tobacco Or Nicotine? No Information not available 12/20/2020 Sex: Unknown Functional Status Question Answer Note LastModified by Organization D etails LastModified Time Are you able to walk? YESWOREST Information not available 12/20/2020 What is your exercise level? None Information not available 12/20/2020 Mental Status None recorded. Family History Relationship Description Onset Age of this Age Resolved Age Notes LastModified by Organization Details LastModified Time Mother Diabetes mellitus 54 [email or web address] Not available 2020 14:16:03 Father Malignant tumor of lung 66 ccytryn Not available 2020 14:16:22 Medical History Condition Response Diabetes Y Hyperlipidemia Y High Blood Pressure / Hypertension Y Gynecological HistoryNo gynecological history recorded. Obstetrics History GPAL:G 0 P 0 0 0 0 Immunizations Vaccine Type Date Status Note Provider Nam e and Address Organization Details Recorded Time Influenza, split virus, quadrivalent, preservative 0 completed Gissel Arnold [facility] 07/12/2020 14:15:40 SARS-COV-2 (COVID-19) vaccine, UNSPECIFIED 1 completed Chloé Vigil [facility] 12/20/2020 12:53:26 SARS-COV-2 (COVID-19) vaccine, UNSPECIFIED 1 completed Chloémahin Vigil [facility] 12/20/2020 12:53:38 Past Encounters Encounter ID Performer Location Encounter Start Date Encounter Closed Date Diagnosis/Indication Diagnosis SNOMED-CT Code Diagnosis ICD10 Code [id number] [facility] [address] [address] 07/12/2020 13:47:23 07/12/2020 16:30:03 Disorder of bile duct 062417802 K83.9 [id number] Dayna Yang [facility] NurseNavi gator_NNR O [address] [place] [address] 12/11/2020 15:05:46 12/11/2020 15:16:39 [id number] Car Juan MD [facility] [address] [facility], [address] [address] 12/20/2020 12:29:08 12/20/2020 14:34:59 Disorder of bile duct 095010583 K83.9 Nonulcer dyspepsia 55204 07 K30 [id number] [facility] [address] [facility] [address] [address] 05/24/2021 09:03:06 05/24/2021 11:17:23 Disorder of bile duct 881736753 K83.9 Nonulcer dyspepsia 59376 07 K30 [id number] Car Juan MD [facility] [address] [address] 06/27/2021 08:12:44 06/27/2021 17:41:40 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 K86.9 [id number] Car Juan MD [facility] [address] [address] 08/15/2021 08:00:31 08/15/2021 17:04:50 Nonulcer dyspepsia 9691611 K30 Pancreatic duct disorder 515331585 K86.9 [id number] Car Juan MD [facility] [address] [address] 09/26/2021 15:25:18 09/26/2021 17:02:16 Pancreatic duct disorder 712898129 K86.9 Nonulcer dyspepsia 65416 07 K30 [id number] Car Juan MD [facility] [address] [address] 12/26/2021 08:19:19 12/26/2021 15:54:35 Pancreatic duct disorder 725714226 K86.9 [id number] Car Juan MD [facility] [address] [address] 01/23/2022 08:52:08 01/23/2022 14:22:33 Pancreatic duct disorder 687799140 K86.9 Health Concerns Section Related Observation LastModified by Organization Detai ls LastModified Time None Recorded Concern Status LastModified by Organization Details LastModified Time None Recorded Advance Directives Directive None Recorded Payers Encounter Date Sequence Insurance Name Policy Number Policy Pop Covered Member ID Pop Member ID Guarantor Name 06/27/2021 1 [employer] (MEDICARE REPLACEMENT PPO) [id number] Claudia Hernadez [id number] Claudia Koehler l 08/15/2021 1 [facility] (MEDICARE REPLACEMENT/AD VANTAGE - PPO) [id number] Claudia Garcias ll [id number] Claudia Koehler l 08/15/2021 2 [facility] (MEDICARE SUPPLEMENT) Claudia Hernadez [id number] Claudia Koehler l 09/26/2021 1 [facility] (MEDICARE REPLACEMENT/AD VANTAGE - PPO) [id number] Claudia Garcias ll [id number] Claudia Koehler l 09/26/2021 2 [facility] (MEDICARE SUPPLEMENT) Claudia Hernadez [id number] Claudia Koehler l 12/26/2021 1 [facility] (MEDICARE REPLACEMENT/AD VANTAGE - PPO) [id number] Claudia Garcias ll [id number] Claudia Koehler l 12/26/2021 2 [facility] (MEDICARE SUPPLEMENT) Claudia Hernadez [id number] Claudia Koehler l 01/23/2022 1 [facility] (MEDICARE REPLACEMENT/AD VANTAGE - PPO) [id number] Claudia Garcias ll [id number] Claudia Koehler l 01/23/2022 2 [facility] (MEDICARE SUPPLEMENT) Claudia Hernadez [id number] Claudia Koehler l Notes Date Note Type Note Provider Name and Address Organization Details Recorded Time 06/27/2021 text/html Consent obtained for telehealth. 70 F with history of DM and HTN referred by Dr. Tobias because of finding of double duct sign in the MRI. 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 Denies and abdominal pain, no weight loss, normal BM, no dysphagia Car Juan MD [address] [place], [address], [facility] 06/27/2021 15:19:14 08/15/2021 text/html Consent obtained for telehealth. 70 F with history of DM and HTN referred by Dr. Tobias because of finding of double duct sign in the MRI. 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 EUS 07/2021 , suspected walled off necrosis vs mass, FNA CHRONIC ACTIVELY INFLAMED FIBROUS TISSUE AND BLOOD. NO EPITHELIAL COMPONENT PRESENT. Denies and abdominal pain, no weight loss, normal BM, no dysphagia Car Juan MD [address] [place], [address], [facility] 08/15/2021 17:01:27 09/26/2021 text/html 70 F with histor y of DM and HTN referred by Dr. Tobias because of finding of double duct sign in the MRI. 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 EUS 07/2021 , suspected walled off necrosis vs mass, FNA CHRONIC ACTIVELY INFLAMED FIBROUS TISSUE AND BLOOD. NO EPITHELIAL COMPONENT PRESENT. Denies and abdominal pain, no weight loss, normal BM, no dysphagia. Had TB presentation, the group agrees imaging surveillance at this time is adequate. Car Juan MD [address] [place], [address], [facility] 09/26/2021 16:14:42 12/26/2021 text/html 70 F with histor y of DM and HTN referred by Dr. Tobias because of finding of double duct sign in the MRI. 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 EUS 07/2021 , suspected walled off necrosis vs mass, FNA CHRONIC ACTIVELY INFLAMED FIBROUS TISSUE AND BLOOD. NO EPITHELIAL COMPONENT PRESENT. Denies and abdominal pain, no weight loss, normal BM, no dysphagia. Had TB presentation, the group agrees imaging surveillance at this time is adequate. Overall in good health, reports post-parandial diarrhea. Car Juan MD [address] [place], [address], [facility] 12/26/2021 15:23:54 01/23/2022 text/html 70 F with histor y of DM and HTN referred by Dr. Tobias because of finding of double duct sign in the MRI. 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 Most recently had admission to [facility] with pancreatitis and EUS 07/2021 , suspected walled off necrosis vs mass, FNA CHRONIC ACTIVELY INFLAMED FIBROUS TISSUE AND BLOOD. NO EPITHELIAL COMPONENT PRESENT. CT 12/2021 with decreasing size in mass 2.9 from 3.6 cm Denies and abdominal pain, no weight loss, normal BM, no dysphagia. Had TB presentation, the group agrees imaging surveillance at this time is adequate. Overall in good health, reports post-parandial diarrhea resolved. Car Juan MD [address] [place] [address], [phone], [facility] 01/23/2022 13:21:20 OBGyn Episode No OBEpisode recorded.
== END 2024-04-30 08:47 | disposition home or self-care (01) ==
LOC: ANHIMG 08:47
PROVIDERS: PCP Family Medicine; Visit Provider Physician Assistant
DX: Z12.31 Encounter for screening mammogram for malignant neoplasm of breast (principal); Z78.0 Asymptomatic menopausal state
CPT/HCPCS: 77063; 77067; 77080

== ENCOUNTER 2024-06-16 01:25 | Day surgery (SDC) | payer MEDICARE, OTHER, SELFPAY ==
[2024-03-29 08:22] VITALS: BMI 25.4
--- NOTE | 2024-04-12 08:11 | SUR.PREOP ---
Called patient this because she hadn't arrived for her appointment. Patient said she called yesterday because she ate solid foods and they advised her to not take her prep and reschedule. Message sent to GI office to reschedule patient.
[2024-06-07 14:44] VITALS: BMI 25.4
--- OUTSIDE RECORDS SUMMARY | 2024-06-16 01:28 | XMS_ITS | Data Portability ---
Author Organization [place] [facility] Address [address] [place] [address] Assessment No assessment recorded. Plan of Treatment [...] By Organization Details Last Modified Time 01/16/2020 [id number] Peripheral Arter ial Disease (PAD): Care Instructions [...] help prevent the foot complications of diabetes. [facility] Not available 01/24/2020 21:21:01 02/04/2020 [id number] Peripheral Arter ial Disease (PAD): Care Instructions [facility] Not available 02/06/2020 10:23:53 Cont Home exerci ses in effort to improve strength, decrease pain, restore function and prevent future injury. Cont daily stretching exercises as directed Avoid high impact activity Cont well fitting and supportive shoegear Avoid barefoot walking Heat / Ice as directed [email or web address] Not available 02/06/2020 10:23:22 04/21/2020 [id number] Cont Home exerci ses in effort to [...] is not able to use the [employer]. [facility] Not available 04/26/2020 11:32:17 Reason for Referral None Reported. Procedures Surgical History Date Name Laterality Status Provider Name and Address Organization Details Recorded Time 0 RWP - Toenail Debridement (6-10) completed Clemente Green DPM [facility] [place], [address], [facility] [place] 04/26/2020 11:30:49 0 RWP - Toenail Debridement (6-10) completed Clemente Green DPM [facility] [place], [address], [facility] [place] 01/24/2020 21:18:37 excision of bunion completed Marielos SHE[facility] 01/16/2020 11:19:24 section completed Marielos SHEA [facility] 01/16/2020 11:19:32 Stent completed Marielos SHEA [facility] 01/16/2020 11:19:47 Imaging Results None recorded. Procedure Notes None recorded. Medical Equipment None Reported. Allergies Allergen ID Allergen Name Allergen Category Reaction Reaction Severity Criticality Documentation Date Start Date Code Code System Note Provider Name and Address Organization Details Recorded Time 72702 Product containin g penicilli n and antibioti c (product) medicatio n Not available Not available Not available 01/16/2020 13094 05 SNOMED SHABBIR Lino [facility] 0 11:18:05 Medications Name Sig Start Date [...] Updated DateTime 01/16/2020 157.48 cm 28 kg/m2 36731.63 g Marielos SHEA [facility] 01/16/2020 11:17:53 Date Recorded Body height Body mass index (BMI) Body weight Provider Name and Address Organization Details Last Updated DateTime 04/21/2020 157.48 cm 28 kg/m2 29583.63 g Annie Medina [place] [facility] 04/21/2020 09:37:42 Social History Question Answer Notes LastModified by Organizat ion Details LastModified Time Tobacco Smoking Status Former Smoker SHABBIR L[facility] 01/16/2020 11:18:58 What Is Your Level Of [...] Response Coronary Artery Disease N Gout N Blood Transfusion N MRSA N Hernia N Lung Disease N Glaucoma N Depression N Pneumonia N Pacemaker N Edema N Deep Vein Thrombosis N Varicose Veins N Arthritis N Blood Clot N Bergman Bite N Cancer N Stroke N Leg or Foot Ulcers N Raynaud's Disease N Polio N High Cholesterol Y Liver Disease N Organ Transplant N Rheumatoid Arthritis N Dialysis N Fibromyalgia N Foot Deformity N Headaches N Kidney Disease N Acid Reflux N Anxiety N Chemotherapy N Thyroid Problems N Anemia [...] Diagnosis/Indication Diagnosis SNOMED-CT Code Diagnosis ICD10 Code Diagnosis Note [id number] Clemente Green DPM [facility] [address] [place] [address] 01/16/2020 10:51:44 01/17/2020 09:11:36 Plantar fasciitis 153860344 M72.2 Peripheral vascular disease 815941359 I73.89 Onychomycosis 369753990 B35.1 Pain in toe 124528338 M7 9.675 M79.674 Equinus co ntracture of the ankle 296896009 M24.571 M24.572 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 Type 1 demarco betes mellitus 95008471 E10.9 [id number] Clemente Green DPM [facility] [address] [place] [address] 02/04/2020 10:20:33 02/06/2020 09:36:13 Plantar fasciitis 776502007 M72.2 Peripheral vascular disease 979625233 I73.89 Onychomycosis 081550032 B35.1 Pain in toe 540881730 M7 9.675 M79.674 Equinus co ntracture of the ankle 305628705 M24.571 M24.572 Talipes valgus 62241452 Q66.6 Type 1 demarco betes mellitus 62007427 E10.9 [id number] Clemente Green DPM [facility] [address] [place] [address] 04/21/2020 09:23:43 04/21/2020 10:09:16 Plantar fasciitis 324693166 M72.2 Peripheral vascular disease 320884602 I73.89 Onychomycosis 193555988 B35.1 Pain in toe 338135936 M7 9.675 M79.674 Equinus co ntracture of the ankle 727750299 M24.571 M24.572 Talipes valgus 27906254 Q66.6 Type 1 demarco betes mellitus 69860404 E10.9 Health Concerns Section Related Observation LastModified by Organization Detai ls LastModified Time None Recorded Concern Status LastModified by Organization Details LastModified Time None Recorded Advance Directives Directive None Recorded Payers Encounter Date Sequence Insurance Name Policy Number Policy Pop Covered Member ID Pop Member ID Guarantor Name 01/16/2020 1 [employer] (MEDICARE REPLACEMENT PPO) [id number] Claudia cunningham 02/04/2020 1 [employer] (MEDICARE REPLACEMENT PPO) [id number] Claudia cunningham 04/21/2020 1 [employer] (MEDICARE REPLACEMENT PPO) [id number] Claudia cunningham Notes Date Note Type Note [...] Previous Injections:none Previous Treatment:none Clemente Green DPM [address] [place] [phone], [facility] 01/24/2020 21:21:21 02/04/2020 text/html Heel PainReporte d bypatient.Location: left plantar Quality:dull; improving Severity:mild Timing:gradual Alleviating Factors:rest; cessation of activity Aggravating Factors:weight bearing Associated Symptoms:no redness; no warmth; no ecchymosis; no swelling; no fever; no chills;left heel pain improves as walking continues;left heel pain plantar-medial;left heel pain worst with first few steps Previous Treatment:stretchin g; helped significantly Clemente Green DPM [address] [place] [address], [facility] 02/06/2020 10:23:56 04/21/2020 text/html Heel PainReporte d bypatient.Location: left plantar (f/u) Quality:dull; improving Severity:no pain Timing:gradual; recurrent Alleviating Factors:rest; cessation of activity Aggravating Factors:weight bearing Associated Symptoms:no redness; no warmth; no ecchymosis; no swelling; no fever; no chills; no heel pain Previous Treatment:helped significantly Clemente Green DPM [address] [place] [address], [facility] 04/26/2020 11:32:39 OBGyn Episode No OBEpisode recorded.
--- OUTSIDE RECORDS SUMMARY | 2024-06-16 01:28 | XMS_ITS | Data Portability ---
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 Surgeries surgical endoscopic ultrasound (SURG) 2021 [email or web address] Not available 3 10:58:[address], abdomen + pelvis, w/wo contrast 2021 [facility] Radiology Department, [address] [place], [address], 3 05:01:44 CT, abdomen + pelvis, w/wo contrast 2021 [facility] Radiology Department, [address] [place], [address], 3 05:01:47 Medication Orders omeprazole 40 mg capsule,de layed release 2021 [facility], [address] [place] [address], [id number], 2 17:01:07 Creon 24,000-76, 000-120,00 0 unit capsule,de layed release 2021 022 [facility], [address] [place] [address], [id number], 15:26:00 Patient TargetsNo targets recorded. Patient InstructionsNo [...] Disea se Contr ol and preve ntion ([facility]) pre depar ture and arriv al requi [...] iagno stics .com/ Covid 19. Not Available [facility] [address] [place], [address], 07/24/2021 10:13:28 07/27/1907/2607/26/2021 SURGI PAKO PATHO LOGY results [facility] T[facility] LABOR ATORY MEDIC INE AND PATHO LOGY [address] [place] [address] [phone] Fax: Patie nt: AGUILAR DIANEE LL, MOI SURESH Speci men #:[id number] Med Rec #: [id number] Hospi laure #: [id number] /A ge [id number] (Age: 71) Sex: F [...] ns for pancy toker atin is negat wilfred and CD163 highl ighte d the histi ocyte s. Immun ostai ns suppo rt the diagn osis. Contr ols are satis facto ry. CPT: 38921 x 1, 43882 x1, 18216 x1 Repor t Elect mahad Reyes d YASH HUANG M.D. dmy/ 022 Not Available [facility] Pathology Department [address] [place], [address], 07/30/2021 15:06:04 12/21/19 22 12/21/2021 COMPR EHENS WILFRED METAB OLIC PANEL glucose 164 mg/dL 65-139 high Non-f astin g refer ence inter leah Not Available [employer] [address] [place], [address], 12/21/2021 04:31:05 12/21/19 22 12/21/2021 COMPR EHENS WILFRED METAB OLIC PANEL urea nitrogen (BUN) 13 mg/dL 7-25 normal Not Available [employer] [address] [place], [address], 12/21/2021 04:31:05 12/21/19 22 12/21/2021 COMPR EHENS WILFRED METAB OLIC PANEL creatinine 0.87 mg/dL 0.60-1 .00 normal Not Available [employer] [address] [place], [address], 12/21/2021 04:31:05 12/21/19 22 12/21/2021 COMPR EHENS [...] kdoqi /gfr% 5Fcal culat or Not Available [employer] [address] [place], [address], 12/21/2021 04:31:05 12/21/19 22 12/21/2021 COMPR EHENS WILFRED METAB OLIC PANEL BUN/creatini ne ratio NOT APPLIC ABLE (calc ) 6-22 Not Available [employer] [address] [place], [address], 12/21/2021 04:31:05 12/21/19 22 12/21/2021 COMPR EHENS WILFRED METAB OLIC PANEL sodium 139 mmol/ L 135-14 6 normal Not Available [address] [place], [address], 12/21/2021 04:31:05 12/21/19 22 12/21/2021 COMPR EHENS WILFRED METAB OLIC PANEL potassium 5.0 mmol/ L 3.5-5. 3 normal Not Available [address] [place], [address], 12/21/2021 04:31:05 12/21/19 22 12/21/2021 COMPR EHENS WILFRED METAB OLIC PANEL chloride 103 mmol/ L 98-110 normal Not Available [address] [place], [address], 12/21/2021 04:31:05 12/21/19 22 12/21/2021 COMPR EHENS WILFRED METAB OLIC PANEL carbon dioxide 28 mmol/ L 20-32 normal Not Available [address] [place], [address], 12/21/2021 04:31:05 12/21/19 22 12/21/2021 COMPR EHENS WILFRED METAB OLIC PANEL calcium 9.1 mg/dL 8.6-10 .4 normal Not Available [address] [place], [address], 12/21/2021 04:31:05 12/21/19 22 12/21/2021 COMPR EHENS WILFRED METAB OLIC PANEL protein, total 7.2 g/dL 6.1-8. 1 normal Not Available [address] [place], [address], 12/21/2021 04:31:05 12/21/19 22 12/21/2021 COMPR EHENS WILFRED METAB OLIC PANEL albumin 3.6 g/dL 3.6-5. 1 normal Not Available [address] [place], [address], 12/21/2021 04:31:05 12/21/19 22 12/21/2021 COMPR EHENS WILFRED METAB OLIC PANEL globulin 3.6 g/dL_ (calc ) 1.9-3. 7 normal Not Available [address] [place], [address], 12/21/2021 04:31:05 12/21/19 22 12/21/2021 COMPR EHENS WILFRED METAB OLIC PANEL albumin/glob ulin ratio 1.0 (calc ) 1.0-2. 5 normal Not Available [address] [place], [address], 12/21/2021 04:31:05 12/21/19 22 12/21/2021 COMPR EHENS WILFRED METAB OLIC PANEL bilirubin, total 0.5 mg/dL 0.2-1. 2 normal Not Available [address] [place], [address], 12/21/2021 04:31:05 12/21/19 22 12/21/2021 COMPR EHENS WILFRED METAB OLIC PANEL alkaline phosphatase 83 U/L 37-153 normal Not Available [address] [place], [address], 12/21/2021 04:31:05 12/21/19 22 12/21/2021 COMPR EHENS WILFRED METAB OLIC PANEL AST 14 U/L 10-35 normal Not Available [facility] [employer] [address] [place], [address], 12/21/2021 04:31:05 12/21/19 22 12/21/2021 COMPR EHENS WILFRED METAB OLIC PANEL ALT 11 U/L 6-29 normal Not Available [address] [place], [address], 12/21/2021 04:31:05 06/21/19 22 06/21/2021 MRI, pancr eas, w/wo contr ast DATE OF EXAM: Jun 21 2021 MRI 9993 - MRI ABDO PANCRE W/WO ACCESS ION# [id number] EXAM: MRI ABDO PANCRE W/WO CLINIC [...] ribe Date/T lyla: Jun 21 2021 11:10A [id number] [email or web address] [facility] Radiology Department [address] [place], [address], 06/25/2021 12:52:17 06/21/19 22 11/08/2020 CT, abdom en + pelvi s, w/ contr ast No observ ation record ed. [facility] [address] [place], [address], 06/28/2021 11:03:49 01/02/20 22 01/01/2022 CT, abdom en + pelvi s, w/ contr ast DATE OF EXAM: Jan [address] 0022 - CT ABDOME N AND PELVIS W ACCESS ION# [id number] EXAM: CT ABDOME N AND PELVIS [...] ribe Date/T lyla: Jan 01 2022 2:03P [id number] [email or web address] [facility] Radiology Department [address] [place], [address], 01/23/2022 13:14:05 Result Notes None recorded. 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 Procedures Surgical History Date Name Laterality Status Provider Name and Address Organization Details Recorded Time 1 Nursing Points - Established Patient Level 1 completed Chloé Vigil [facility] 12/20/2020 12:56:59 1 Nursing Points - New Patient Level 2 completed Gissel Arnold [facility] 07/12/2020 14:19:51 6 placement of stent in cardiac conduit completed Gissel Arnold [facility] 07/12/2020 14:18:49 9 delivery completed Gissel Arnold [facility] 07/12/2020 14:17:47 Unlisted px foot/toes completed Gissel Arnold [facility] 07/12/2020 14:17:53 Cataract Surgery completed Gissel Arnold [facility] 07/12/2020 14:19:08 Imaging Results Imaging Date Name Status LastModified by Organiz ation Details LastModified Time 06/21/2021 MRI, pancreas, w/wo contrast completed [email or web address] [facility] Radiology Department [address] [place], [address], 06/25/2021 12:52:17 11/08/2020 CT, abdomen + pelvis, w/ contrast completed [email or web address] [address], [address], 06/28/2021 11:03:49 01/01/2022 CT, abdomen + pelvis, w/ contrast completed [email or web address] [facility] Radiology Department [address] [place], [address], 01/23/2022 13:14:05 Procedure Notes None recorded. Medical Equipment None Reported. Allergies Allergen ID Allergen Name Allergen Category Reaction Reaction Severity Criticality Documentation Date Start Date Code Code System Note Provider Name and Address Organization Details Recorded Time 474990 Product containin g penicilli n and antibioti c (product) medicatio n Not available Not available Not available 07/12/2020 [address] [facility] 14:10:47 Medications Name Sig Start Date [...] azelastine 137 mcg (0.1 %) nasal spray [place] 1 spray every day by intranasa l route. 12/20 completed Not Available Not Available Not Available fluticasone propionate 50 mcg/actuati on nasal spray,suspe nsion 12/20 completed Not Available Not Available Not Available sertraline 50 mg tablet active Not Available Not Available Not Available Mylanta 200 mg-200 mg-20 mg chewable tablet Take by oral route. 12/20 completed Not Available Not Available Not Available K26-Ijfrs 1,000 mcg tablet Take 1 tablet every day by oral route. active Not Available Not Available No t Available escitalopra m 10 mg tablet active Not Available Not Available Not Available BD Ultra-Fine Mini Pen Needle 31 gauge x / active Not Available Not Available Not Available [...] Available Not Available Not Available Dexcom G6 Software Applications Architect active Not Available Not Available Not Available Dexcom G6 Transmitter device active Not Available Not Available Not Available ID NOW COVID-19 Test Kit TEST DIRECTED active Not Available Not Available No t Available Vitals None Recorded Social History Question Answer Notes LastModified by Organizat ion Details LastModified Time Tobacco Smoking Status Former Smoker quit 8 [address] [facility] 07/12/2020 14:17:11 What Is Your Level [...] Others Information not available 07/12/2020 Preferred Language Romansh Information not available 07/12/2020 Language(s) Spoken At Home Romansh Information not available 12/20/2020 Barriers Noted No Informatio n not available 12/20/2020 Emotional State Depressed Informati on not available 12/20/2020 Cultural Barrier No Informat ion not available 12/20/2020 Hearing Intact Yes Informatio n not available 12/20/2020 Language Barrier No Informat ion not available 07/12/2020 Language(s) Understood Romansh Information not available 12/20/2020 Literacy Barrier No Informat ion not available 12/20/2020 Memory Intact Yes Information not available 12/20/2020 Physical Limitations No Information not available 12/20/2020 Vision Intact Yes With Glasses On Information not available 12/20/2020 Dog Bather Requested In Exam Room No Information not available 12/20/2020 Marital Status Informatio n not available 07/12/2020 What Is Your Relationship Status? Information not available 12/20/2020 Do You Feel Stressed (tense, Restless, Nervous, Or Anxious, Or Unable To Sleep At Night)? [id number] Information not available 12/20/2020 Do You Or [...] virus, quadrivalent, preservative [address] [facility] 07/12/2020 14:15:40 SARS-COV-2 (COVID-19) vaccine, UNSPECIFIED [address] [facility] 12/20/2020 12:53:26 SARS-COV-2 (COVID-19) vaccine, UNSPECIFIED [address] V[address] [facility] 12/20/2020 12:53:38 Past Encounters Encounter ID Performer Location Encounter Start Date Encounter Closed Date Diagnosis/Indication Diagnosis SNOMED-CT Code Diagnosis ICD10 Code Diagnosis Note [id number] Car Juan MD [address] [address] 07/12/2020 13:47:23 07/12/2020 16:30:03 Disorder of bile duct 270181564 K83.9 70 F with history of DM and HTN referred by Dr. Tobias because of finding of double duct sign in the MRI. MRI on 05/24/20 showed 11 mm CBD and 4 mm PD ? ampullary lesion. Patient reports nausea, bloating, abdominal discomfort . Never had an EGD in the past. No red flags. No FH of cancers. PLAN - Schedule for EGD/EUS +/- FNA - Check CMP Risk benefit and alternativ e explained, An EUS poses few risks. Rarely (up to 3% of the time), complicati ons may include: ?Adverse reaction to the sedative used during the exam ?Bleeding from the site where a tissue sample (biopsy) was taken ?A tear in intestinal wall wall (perforati on) Missed lesions during the procedure Pancreatit is Infection After discussing the risks of the procedure the family agrees to proceed [id number] Dayna Yang [facility] [address] [place] [address] 12/11/2020 15:05:46 12/11/2020 15:16:39 [id number] Car Juan MD [facility] [address] [facility] [facility] [address] [address] 12/20/2020 12:29:08 12/20/2020 14:34:59 Disorder of bile duct 563646212 K83.9 70 F with history of DM and HTN referred by Dr. Tobias because of finding of double duct sign in the MRI. MRI on 05/24/20 showed 11 mm CBD and 4 mm PD ? ampullary lesion. Patient reports nausea, bloating, abdominal discomfort . Never had an EGD in the past. No red flags. No FH of cancers. PLAN - Schedule for EGD/EUS +/- FNA - Check CMP Risk benefit and alternativ e explained, An EUS poses few risks. Rarely (up to 3% of the time), complicati ons may include: ?Adverse reaction to the sedative used during the exam ?Bleeding from the site where a tissue sample (biopsy) was taken ?A tear in intestinal wall wall (perforati on) Missed lesions during the procedure Pancreatit is Infection After discussing the risks of the procedure the family agrees to proceed Nonulcer dyspepsia 22797 07 K30 Patient complains of nausea and bloating every other days, Symptoms seem mod in intensity however patient does not engages in providing history which is very limited and difficult to guide treatment at this point.Over all her symptoms are not necessaril y related to bile duct findings > WIll treat with PPI and Zofran now> RTC 3 months [id number] Car Juan MD [facility] [address] [address] 05/24/2021 09:03:06 05/24/2021 11:17:23 Disorder of bile duct 756284066 K83.9 70 F with history of DM and HTN referred by Dr. Tobias because of finding of double duct sign in the MRI. MRI on 05/24/20 showed 11 mm CBD and 4 mm PD ? ampullary lesion. Patient reports nausea, bloating, abdominal discomfort . Never had an EGD in the past. No red flags. No FH of cancers. ERCP: bulging papilla (inflammat ion), PD stent in place (cytology: negative for malignant cells, +yeast, bacteria and inflammato ry cells). Wire advanced to pancreatic tail an irregulari ty was found in the ventral PD in the head of the pancreas with dilated dmain duct and side branches, difficult to advance the wire. Possible partial ansa loop?. The ventral PD was swept and debris was removed and a temporary stent placed into the ventral PD. Admitted to [facility] ([place] for mid abdominal pain (04/18/21-1 06/23/20). Per patient she was told she had pancreatit s. Per patient she had never been told she had pancreatit is. She had two CT scans with contrast. She also had stool studies for diarrhea and per patient those were negative. She was treated conservati vely. Sshe was discharged with percocet.S he states she continues to have intermitte nt abdominal pain but not as intense. Worse with certain foods such as shredded wheat. Occasional nausea. No vomiting. No fevers, chills, diarrhea, constipati on, melena, hematochez ia, jaundice, itching. Lost weight during /after hospitaliz ation due to low appetite. PLAN - obtain MRCP/MRI pancreas pending findings will consider EUS/FNA/ER ARIN w spyglass Nonulcer dyspepsia 56334 07 K30 She states she continues to have intermitte nt abdominal pain but not as intense. Worse with certain foods such as shredded wheat. Occasional nausea. No vomiting. Feels like PPI 20mg improved helped but not completely .Overall her symptoms are not necessaril y related to bile duct findings > continue with PPI but increase to 40mg daily RTC3M [id number] Car Juan MD [facility] [address] [address] 06/27/2021 08:12:44 06/27/2021 17:41:40 Pancreatic duct disorder 611078504 K86.9 Consent obtained for telehealth . 70 F with history of DM and HTN referred by Dr. Tobias because of finding of double duct sign in the MRI. 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 Denies and abdominal pain, no weight loss, normal BM, no dysphagia > suspect post pancreatit si collection vs necrosis, plan for EGD/EUS FNA PLan for EGD/ EUS FNA Risk benefit and alternativ e explained, An EUS poses few risks. Rarely (up to 1% of the time), complicati ons may include: ?Adverse reaction to the sedative used during the exam ?Bleeding from the site where a tissue sample (biopsy) was taken ?A tear in intestinal wall wall (perforati on) Missed lesions during the procedure Pancreatit is InfectionA fter discussing the risks of the procedure the patient agrees to proceed [id number] [facility] [address] [address] 08/15/2021 08:00:31 08/15/2021 17:04:50 Nonulcer dyspepsia 6286333 K30 She states she continues to have intermitte nt abdominal pain but not as intense. Worse with certain foods such as shredded wheat. Occasional nausea. No vomiting. Feels like PPI 20mg improved helped but not completely .Overall her symptoms are not necessaril y related to bile duct findings > continue with PPI but increase to 40mg daily RTC3M Pancreatic duct disorder 289973808 K86.9 70 F with history of DM and HTN referred by Dr. Tobias because of finding of double duct sign in the MRI. 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 EUS 07/2021 , suspected walled off necrosis vs mass, FNA CHRONIC ACTIVELY INFLAMED FIBROUS TISSUE AND BLOOD. NO EPITHELIAL COMPONENT PRESENT. Denies and abdominal pain, no weight loss, normal BM, no dysphagia > Plan for imaging surveillan ce, CT with Pancreatic protocol in 6 months> Tumor Board presentati on for surveillan ce plan [id number] Car Juan MD [address] [address] 09/26/2021 15:25:18 09/26/2021 17:02:16 Pancreatic duct disorder [id number] K86.9 70 F with history of DM and HTN referred by Dr. Tobias because of finding of double duct sign in the MRI. 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 EUS 07/2021 , suspected walled off necrosis vs mass, FNA CHRONIC ACTIVELY INFLAMED FIBROUS TISSUE AND BLOOD. NO EPITHELIAL COMPONENT PRESENT. Denies and abdominal pain, no weight loss, normal BM, no dysphagia. Had TB presentati on, the group agrees imaging surveillan ce at this time is adequate. > Plan for imaging surveillan ce, CT with Pancreatic protocol in 3 months Nonulcer dyspepsia 71713 07 K30 She states she continues to have intermitte nt abdominal pain but not as intense. Worse with certain foods such as shredded wheat. Occasional nausea. No vomiting. Feels like PPI 20mg improved helped but not completely .Overall her symptoms are not necessaril y related to bile duct findings > continue with PPI but increase to 40mg daily RTC3M [id number] Car Juan MD [facility] [address] [address] 12/26/2021 08:19:19 12/26/2021 15:54:35 Pancreatic duct disorder [id number] K86.9 70 F with history of DM and HTN referred by Dr. Tobias because of finding of double duct sign in the MRI. 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 EUS 07/2021 , suspected walled off necrosis vs mass, FNA CHRONIC ACTIVELY INFLAMED FIBROUS TISSUE AND BLOOD. NO EPITHELIAL COMPONENT PRESENT. Denies and abdominal pain, no weight loss, normal BM, no dysphagia. Had TB presentati on, the group agrees imaging surveillan ce at this time is adequate. Overall in good health, reports post-paran dial diarrhea. > Has not yet scheduled her surveillan ce CT , follow up after CT> Suspect pancreatic insufficie ncy, trial pancreas [id number] Car Juan MD [facility] [address] [place] [address] [address] 01/23/2022 08:52:08 01/23/2022 14:22:33 Pancreatic duct disorder 532882346 K86.9 70 F with history of DM and HTN referred by Dr. Tobias because of finding of double duct sign in the MRI. 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 Most recently had admission to [facility] with pancreatit is and EUS 07/2021 , suspected walled off necrosis vs mass, FNA CHRONIC ACTIVELY INFLAMED FIBROUS TISSUE AND BLOOD. NO EPITHELIAL COMPONENT PRESENT. CT 12/2021 with decreasing size in mass 2.9 from 3.6 cm Denies and abdominal pain, no weight loss, normal BM, no dysphagia. Had TB presentati on, the group agrees imaging surveillan ce at this time is adequate. Overall in good health, reports post-paran dial diarrhea resolved. PLAN: > repeat CT and labs in Jun> Continued surveillan ce of likely inflammato ry post pancreatit is mass > Suspect pancreatic insufficie ncy, started Creon, reports improvemen t Health Concerns Section Related Observation LastModified by Organization Detai ls LastModified Time None Recorded Concern Status LastModified by Organization Details LastModified Time None Recorded Advance Directives Directive None Recorded Payers Encounter Date Sequence Insurance Name Policy Number Policy Pop Covered Member ID Pop Member ID Guarantor Name 06/27/2021 1 [employer] (MEDICARE REPLACEMENT PPO) [id number] Claudia Hernadez [id number] Claudia cunningham 08/15/2021 1 [employer] [facility] (MEDICARE REPLACEMENT/AD VANTAGE - PPO) [id number] Claudia Garcias [id number] Claudia cunningham 08/15/2021 2 [facility] Claudia Hernadez [id number] Claudia cunningham 09/26/2021 1 [facility] (MEDICARE REPLACEMENT/AD VANTAGE - PPO) [id number] Claudia Garcias [id number] Claudia cunningham 09/26/2021 2 [facility] (MEDICARE SUPPLEMENT) Claudia Hernadez [id number] Claudia cunningham 12/26/2021 1 [facility] (MEDICARE REPLACEMENT/AD VANTAGE - PPO) [id number] Claudia Garcias ll [id number] Claudia Koehler l 12/26/2021 2 [facility] (MEDICARE SUPPLEMENT) Claudia Hernadez [id number] Claudia Koehler l 01/23/2022 1 [facility] (MEDICARE REPLACEMENT/AD VANTAGE - PPO) [id number] Claudia Garcias ll [id number] Claudia cunningham 01/23/2022 2 [facility] (MEDICARE SUPPLEMENT) Claudia Hernadez [id number] Claudia cunningham Notes Date Note Type Note [...] chronic pancreatitis. Most recently had admission to [facility] with pancreatitis and MRCP 05/2021: Infiltrating and irregular mass in the magdalene-portal region with centralnecrosis which appears to be contiguous with the distal esophagus andabutting the medial aspect of the liver and possibly also involving thecrus of the diaphragm. Denies and abdominal pain, no weight loss, normal BM, no dysphagia Car Juan MD [address] [place] [address], [phone], [facility] 06/27/2021 15:19:14 08/15/2021 text/html Consent obtained for [...] chronic pancreatitis. Most recently had admission to [facility] with pancreatitis and MRCP 05/2021: Infiltrating and [...] normal BM, no dysphagia Car Juan MD [address] [place] [address], [phone], [facility] 08/15/2021 17:01:27 09/26/2021 text/html 70 F with [...] chronic pancreatitis. Most recently had admission to [facility] with pancreatitis and MRCP 05/2021: Infiltrating and [...] time is adequate. Car Juan MD [address] [place], [phone], [facility] 09/26/2021 16:14:42 12/26/2021 text/html 70 F with [...] chronic pancreatitis. Most recently had admission to [facility] with pancreatitis and MRCP 05/2021: Infiltrating and [...] reports post-parandial diarrhea. Car Juan MD [address] [place], [phone], [facility] 12/26/2021 15:23:54 01/23/2022 text/html 70 F with [...] chronic pancreatitis. Most recently had admission to [facility] with pancreatitis and EUS 07/2021 , suspected [...] reports post-parandial diarrhea resolved. Car Juan MD [address] [place], [phone], [facility] 01/23/2022 13:21:20 OBGyn Episode No OBEpisode recorded.
[2024-06-16 10:25] VITALS: BP 151/57; PULSE 70; RESP 16; TEMP 36.9; O2SAT 98
[2024-06-16 10:38] LABS: Glucose Point of Care 188 mg/dl (65-105)
--- NOTE | 2024-06-16 10:54 | P.PNAN_ITS ---
Anes - Initial Pre Proc Eval Procedure: Operation Date: 06/16/24 14:00 Proposed Procedures p Colonoscopy - Vishal Velasco MD Date/Time: 06/16/24 10:54 Surgeon: Vishal Velasco MD Pre Op Diagnosis: noninfective gastroenteritis/colitis, screen colon Patient Data Age: 74 Gender: F Height: 1.57 m Weight: 63 kg Last Vital Signs Temp 36.9 C 06/16/24 10:25 Pulse 70 06/16/24 10:25 Resp 16 06/16/24 10:25 BP 151/57 H 06/16/24 10:25 Pulse Ox 98 06/16/24 10:25 O2 Del Method Room Air 06/16/24 10:25 Allergies Allergy/AdvReac Type Severity Reaction Status Date / Time Penicillins Allergy Dyspnea / Verified 06/16/24 10:23 SOB Home Medications ?Medication ?Instructions ?Recorded ?Confirmed ?Type aspirin 81 mg tablet,delayed 81 mg PO DAILY 09/02/22 06/16/24 History release (Adult Aspirin Regimen) pen needle, diabetic 31 gauge x #1,200 ea 04/17/23 04/19/24 Rx 3/16 (BD Ultra-Fine Mini Pen Needle) empagliflozin 25 mg tablet See Rx Instructions .Route 09/16/23 06/16/24 Rx (Jardiance) .COMPLEX #90 tabs lisinopril 5 mg tablet See Rx Instructions .Route 10/20/23 06/16/24 Rx .COMPLEX #100 tabs metoprolol succinate 50 mg See Rx Instructions .Route 12/14/23 06/16/24 Rx tablet,extended release 24 hr .COMPLEX #100 tabs blood-glucose sensor (FreeStyle #1 ea 01/06/24 04/19/24 Rx [place] 3 Sensor device) [id number]-tkauzkh See Rx Instructions .Route 03/29/24 06/16/24 Rx 36,000-114,000-180,000 unit .COMPLEX #180 caps capsule,delay rel (Creon) atorvastatin 40 mg tablet See Rx Instructions .Route 04/06/24 06/16/24 Rx .COMPLEX #90 tabs metformin 1,000 mg tablet See Rx Instructions .Route 04/08/24 06/16/24 Rx .COMPLEX #180 tabs Lantus Solostar U-100 Insulin 100 16 unit (0.16 mL) subcut .COMPLEX 04/27/24 06/16/24 Rx unit/mL (3 mL) subcutaneous pen #15 mL (insulin glargine) glimepiride 4 mg tablet See Rx Instructions .Route 05/30/24 06/16/24 Rx .COMPLEX #90 tabs sertraline 50 mg tablet 50 mg PO DAILY #90 tabs 06/08/24 06/16/24 Rx Laboratory Tests 06/16/24 10:36 POC Capillary Glucose 188 H mg/dl (65-105) Patient hx anesthesia problems: none Family hx anesthesia problems: none Results Review: All pre-operative results and documents have been reviewed as part of the pre- operative evaluation. [facility] Past Medical History Medical History Chronic diarrhea Chronic pancreatitis Colon cancer screening Coronary artery disease Hyperlipidemia Hypertension Nausea Type 2 diabetes mellitus Surgical History Surgical History H/O heart artery stent Family History Family History Mother Diabetes mellitus Sibling Diabetes mellitus Fibromyalgia HIV (human immunodeficiency virus infection) Father Heart problem Lung cancer Smoker Social History Social History Social History: Smoking status: Former smoker Second hand tobacco smoke exposure: No Alcohol intake: never Substance use: never Substance use type: does not use Other substance usage details: gummies for sleep aid Lack of Transportation: No Lack of Food: Never True Current Housing: I Have Housing Concerned About Future Housing: No Difficulty Paying Gas/Electric Bills: No Difficulty Paying for Meds: No Currently Unemployed: YES Education: Decline to Answer Difficulty w/ Childcare or Family Care: No Living arrangements: with family Additional living arrangements comments: Pt lives with son. Occupation/Education: retired Gender identity (if verbalized by the patient): Female Sexual Orientation (if Verbalized by the Patient): Straight or Heterosexual Spiritual care concerns: No Anes - Eval Final PreProcedure Day of Procedure 06/16/24 10:54 Patient weight: overweight Heart: regular rate and rhythm Lungs: clear to auscultation Airway: Mallampati scale class II Neurological: alert and oriented Last oral intake: >/= 8 hours ASA classification: III Emergent: no Anesthetic plan: proceed Anesthesia type and monitoring: general GIVS and standard monitoring Results Review: All pre-operative results and documents have been reviewed as part of the pre- operative evaluation. Informed Consent: The patient's anesthetic plan and its attendant risks and benefits were discussed with the patient/family/POA. Questions were solicited and answers provided to the satisfaction of the patient/family/POA.
[2024-06-16] MEDS: LACTATED RINGERS 1,000 ML 150 ML IV CONT (11:10)
--- NOTE | 2024-06-16 11:22 | PM.IMHP ---
H&P: HPI History of Present Illness Date/Time: 06/16/24 11:22 Chief Complaint: History of colon polyps Narrative: The patient has a history of colonic polyps, the last colonoscopy was 4 years ago. Review of Systems Review of Systems: All systems reviewed & are unremarkable except as noted in HPI and below PMFSH Past Medical History Medical History Chronic diarrhea Chronic pancreatitis Colon cancer screening Coronary artery disease Hyperlipidemia Hypertension Nausea Type 2 diabetes mellitus Surgical History Surgical History H/O heart artery stent Family History Family History Mother Diabetes mellitus Sibling Diabetes mellitus Fibromyalgia HIV (human immunodeficiency virus infection) Father Heart problem Lung cancer Smoker Social History Social History Social History: Smoking status: Former smoker Second hand tobacco smoke exposure: No Alcohol intake: never Substance use: never Substance use type: does not use Other substance usage details: gummies for sleep aid Lack of Transportation: No Lack of Food: Never True Current Housing: I Have Housing Concerned About Future Housing: No Difficulty Paying Gas/Electric Bills: No Difficulty Paying for Meds: No Currently Unemployed: YES Education: Decline to Answer Difficulty w/ Childcare or Family Care: No Living arrangements: with family Additional living arrangements comments: Pt lives with son. Occupation/Education: retired Gender identity (if verbalized by the patient): Female Sexual Orientation (if Verbalized by the Patient): Straight or Heterosexual Spiritual care concerns: No Meds Home Medications and Allergies Home Medications ?Medication ?Instructions ?Recorded ?Confirmed ?Type aspirin 81 mg tablet,delayed 81 mg PO DAILY 09/02/22 06/16/24 History release (Adult Aspirin Regimen) pen needle, diabetic 31 gauge x #1,200 ea 04/17/23 04/19/24 Rx 3/16 (BD Ultra-Fine Mini Pen Needle) empagliflozin 25 mg tablet See Rx Instructions .Route 09/16/23 06/16/24 Rx (Jardiance) .COMPLEX #90 tabs lisinopril 5 mg tablet See Rx Instructions .Route 10/20/23 06/16/24 Rx .COMPLEX #100 tabs metoprolol succinate 50 mg See Rx Instructions .Route 12/14/23 06/16/24 Rx tablet,extended release 24 hr .COMPLEX #100 tabs blood-glucose sensor (FreeStyle #1 ea 01/06/24 04/19/24 Rx [place] 3 Sensor device) [id number]-uurktgq See Rx Instructions .Route 03/29/24 06/16/24 Rx 36,000-114,000-180,000 unit .COMPLEX #180 caps capsule,delay rel (Creon) atorvastatin 40 mg tablet See Rx Instructions .Route 04/06/24 06/16/24 Rx .COMPLEX #90 tabs metformin 1,000 mg tablet See Rx Instructions .Route 04/08/24 06/16/24 Rx .COMPLEX #180 tabs Lantus Solostar U-100 Insulin 100 16 unit (0.16 mL) subcut .COMPLEX 04/27/24 06/16/24 Rx unit/mL (3 mL) subcutaneous pen #15 mL (insulin glargine) glimepiride 4 mg tablet See Rx Instructions .Route 05/30/24 06/16/24 Rx .COMPLEX #90 tabs sertraline 50 mg tablet 50 mg PO DAILY #90 tabs 06/08/24 06/16/24 Rx Allergies Allergy/AdvReac Type Severity Reaction Status Date / Time Penicillins Allergy Dyspnea / Verified 06/16/24 10:23 SOB Vital Signs Vital Signs - 24 hr 06/16/24 10:25 Temperature 98.4 F Pulse Rate 70 Respiratory Rate 16 Blood Pressure 151/57 H Pulse Oximetry 98 Oxygen Delivery Room Air Exam Const: General: cooperative and healthy appearing Resp: Effort & Inspection: normal respiratory effort and able to speak in complete sentences Auscultation: clear to auscultation bilaterally Cardio: Rate: regular rate Rhythm: regular rhythm GI: Inspection: normal to inspection GI Palp: No No hepatosplenomegaly present Auscultation: normal bowel sounds Rectal Exam: deferred Skin: General skin exam: normal color Psych: Appearance: grossly normal Mental Status: mental status grossly normal Assessment and Plan Assessment and plan (1) Colon cancer screening: Code(s): Z12.11 - Encounter for screening for malignant neoplasm of colon Status: Acute Assessment and Plan: The patient is deemed a good candidate for the procedure. Consent signed. Will proceed.
[2024-06-16 11:42] VITALS: BP 146/67; PULSE 86; RESP 26; O2SAT 100
[2024-06-16 11:52] VITALS: BP 127/75; PULSE 72; RESP 19; O2SAT 100
[2024-06-16 12:02] VITALS: BP 147/74; PULSE 73; RESP 19; O2SAT 94
== END 2024-06-16 12:16 | disposition home or self-care (01) ==
PROVIDERS: PCP Family Medicine; Referring Provider Nurse Practitioner Family; Visit Provider Internal Medicine Gastroenterology
PROC: 0DJD8ZZ Inspection of Lower Intestinal Tract, Via Natural or Artificial Opening Endoscopic (ICD-10-PCS; CPT 45378; principal; 2024-06-16 14:00)
DX: Z12.11 Encounter for screening for malignant neoplasm of colon (principal); D12.3 Benign neoplasm of transverse colon; E11.9 Type 2 diabetes mellitus without complications; Z87.891 Personal history of nicotine dependence
CPT/HCPCS: 45385; 82948; 88305; J2003; J2704; J7120

== ENCOUNTER 2025-01-31 13:57 | Outpatient (CLI) | payer MEDICARE, OTHER, SELFPAY ==
--- OUTSIDE RECORDS SUMMARY | 2024-02-27 04:00 | XMS_ITS ---
Author Organization [facility] Address [address] [place] [address] Care Team Providers Care Soil Scientist Name Role Phone Lm Maria Primary Care Provider Migration, Provider Unavailable Unavailable REASON FOR VISIT EMR-[facility] Encounters Encounter Location Date Provider Diagnosis [facility] [address] [place] [address] 02/27/2024 Provider Migration Plan Of Treatment No Information Progress Notes * Claudia SANCHEZDOB:09/1949 (75 yo F)Acc No.[id number]:02/27/2024 Patient: Letty HANNAHZoeClaudia TATUM :1950 A ge:74 Y S ex:Female [address] [place], [address] Subjective: * Chief Complaints: * E MR-Parker * * Date:
--- OUTSIDE RECORDS SUMMARY | 2024-02-28 04:00 | XMS_ITS ---
Author Organization [facility] Address [address] [place] [address] Care Team Providers Care Precision Farming Specialist Name Role Phone Lm Maria Primary Care Provider Migration, Provider Unavailable Unavailable REASON FOR VISIT EMR-[facility] Encounters Encounter Location Date Provider Diagnosis [facility] [address] [place] [address] 02/28/2024 Provider Migration Plan Of Treatment No Information Progress Notes * Claudia SANCHEZDOB:09/1949 (75 yo F)Acc No.[id number]:02/28/2024 Patient: Letty HANNAHZoeClaudia TATUM :1950 A ge:74 Y S ex:Female [address] [place], [address] Subjective: * Chief Complaints: * E MR-Parker * * Date:
--- NOTE | ~2025-01-31 | US_ITS ---
US art doppler w press LE BI INDICATION: Peripheral arterial disease TECHNIQUE: Segmental pressures and plethysmographic and Doppler waveforms of the brachial and lower extremity arteries were obtained. COMPARISON: None. FINDINGS: Right and left brachial artery pressures of 151 mm Hg and 161 mm Hg, respectively, are concordant (normal difference <= 30 mmHg). The right ankle-brachial index (ISAÍAS) is 1.0 (normal >= 0.9-1.0). The right great toe-brachial index (TBI) is 26 2 (normal >= 0.60). The left ISAÍAS is 0.86. The left TBI is 0.72. There is biphasic flow bilaterally in the lower extremity arteries. IMPRESSION: 1. Mildly decreased left ankle brachial index measuring 0.86 consistent with mild peripheral arterial disease. Reviewed, dictated and finalized at location O. IMPRESSION: 1. Mildly decreased left ankle brachial index measuring 0.86 consistent with mi ld peripheral arterial disease.
--- OUTSIDE RECORDS SUMMARY | 2025-01-31 15:40 | XMS_ITS | Patient Health Record ---
Author Organization [facility] k Address [address] [place] [address] Care Team Providers Care Welder Oxyhydrogen Name Role Phone Lm Maria Primary Care Provider [phone] Migration, Provider Unavailable Unavailable Reason For Referral No Information Encounters Encounter Location Date Provider Diagnosis [facility] [address] [place] [address] 02/27/2024 Provider Migration [facility] [address] [place] [address] 02/28/2024 Provider Migration Plan Of Treatment No Information
--- OUTSIDE RECORDS SUMMARY | 2025-01-31 15:41 | XMS_ITS | Patient Health Record ---
Author Organization [facility] Address [address] [place] [address] Care Team Providers Care Industrial Diamond Polisher Name Role Phone Servando Saha MD Primary Care Provider UnavailJunior Marin Unavailable [phone] Allergies Allergen (clinical drug ingredient) Drug/Non Drug Allergy documented on EMR Reaction Allergy Type Onset Date Status Penicillin Unknown Drug Allergy Active Results Component Value Reference Range Notes UDT Reviewed date:09/23/2024 11:11:57 AM Interpretation: Performing Lab: Notes/Report: THC p 0 - 50 ng/ml Cocaine n 0 - 300 ng/ml Amphetamine n 0 - 1000 ng/ml Buprenorphine (BUP) n 0 - 10 ng/ml Secobarbital (Bar) n 0 - 300 ng/ml Oxazepam (BZO) n 0 - 300 ng/ml 9-lkogeezwoe-1,6-nkbrtett-8,3-diphenylpyrrolidine (ASHLEY P) n 0 - 300 ng/ml Methamphetamine (MET) n 0 - 1000 ng/ml Methylenedioxymethamphetamine (MDMA) n 0 - 500 ng/ml Morphine (MOP 300/[id number]) n 0 - 300 ng/ml Methadone (MTD) n 0 - 300 ng/ml Phencyclidine (PCP) n 0 - 25 ng/ml Nortriptyline (TCA) n 0 - 1000 ng/ml Oxycodone n 0 - 300 ng/ml x n 0 - 300 ng/ml Reason For Referral No Information Medications Medication SIG (Take, Route, Frequency, Duration) Notes Start Date End Date Status Spravato (84 MG Dose) 28 MG/DEVICE Solution Therapy Pack 3 sprays in each nostril Nasally twice a week; Duration: 1 days 10/18/2024 Active BD Pen Needle Mini U/F 31G X 5 MM Miscellaneous USE TO ADMINISTER INSULIN DAILY; Duration: 90 Days Active Atorvastatin Calcium 40 MG Tablet TAKE 1 TABLET BY MOUTH DAILY Oral; Duration: 90 Days Active Lantus SoloStar 100 UNIT/ML Solution Pen-injector ADMINISTER 17 UNITS UNDER THE SKIN EVERY NIGHT AT BEDTIME Subcutaneous daily; Duration: 68 days Active Creon 63010-107418 UNIT Capsule Delayed Release Particles TAKE 2 CAPSULES BY MOUTH THREE TIMES DAILY Oral; Duration: 33 Days Active ALPRAZolam 0.25 MG Tablet TAKE 1 TABLET BY MOUTH DAILY NEEDED FOR ANXIETY Oral Active Metoprolol Succinate ER 50 MG Tablet Extended Release 24 Hour TAKE 1 TABLET BY MOUTH DAILY Oral; Duration: 90 Days Active Sertraline HCl 100 MG Tablet 1 tablet Oral daily; Duration: 30 days Active Ozempic (0.25 or 0.5 MG/DOSE) 2 MG/3ML Solution Pen-injector ADMINISTER 0.25 MG UNDER THE SKIN WEEKLY FOR 4 WEEKS Subcutaneous; Duration: 57 Days Active metFORMIN HCl 1000 MG Tablet TAKE 1 TABLET BY MOUTH TWICE DAILY Oral; Duration: 90 Days Active Lisinopril 5 MG Tablet TAKE 1 TABLET BY MOUTH DAILY Oral; Duration: 90 Days Active Spravato (56 MG Dose) 28 MG/DEVICE Solution Therapy Pack 2 sprays in each nostril Nasally once; Duration: 1 days 10/18/2024 Active Jardiance 25 MG Tablet TAKE 1 TABLET BY MOUTH EVERY DAY Oral; Duration: 5 Days Active Social History Tobacco Use: Social History Observation Description Date Details (start date - stop date) Former Smoker NA - NA Sex Assigned At : Social History Observation Description Sex Assigned At Female Social History Miscellaneous: Social Info Question Answer Notes Advance Care Planning Advance Directive Refused to discuss advance care planning Safety issues: Do you feel safe at home? Yes Are there any firearms in the house? No Social History Social Info Question Answer Notes Household: Marital Status: Household: Social Info Question Answer Notes Household Marital status: Number of adults in household: 1 Level of education: professional schools/Masters /PhD Drug/Alcohol: Social Info Question Answer Notes AUDIT-C (Standard) Did you have a drink containing alcohol in the past year? No Points 0 Interpretation Negative Tobacco Use: Social Info Question Answer Notes Tobacco Control (Standard) Tobacco use: Former smoker How long has it been since you last smoked? 5-10 years Additional Details Category Social Info Options Details Miscellaneous: Occupation: retired Drug/Alcohol: Do you smoke marijuana? Den ies Problems Problem Type SNOMED Code ICD Code Onset Dates Problem Status W/U Status Risk Notes Problem Screening for cardiovascular system disease (778554173) Encounter for screening for cardiovascular disorders (Z13.6) Active confirmed Problem Depression Screening (225115596) Encounter for screening for depression (Z13.31) Active confirmed Problem Severe recurrent major depression without psychotic features (33695705) Severe episode of recurrent major depressive disorder, without psychotic features (F33.2) Active confirmed Problem Nondependent cannabis abuse (598912834) Marijuana use (F12.90) Active confirmed Problem Anxiety (28323394) Anxiety (F41.9) Active confirmed Problem Suicidal ideation (0998350) Suicidal ideation (R45.851) Active confirmed Vital Signs Heart Rate 66 /min 10/11/2024 Blood pressure diastolic 67 mm Hg 10/11/2024 Weight-kg 58.7 kg 10/11/2024 Blood pressure systolic 134 mm Hg 10/11/2024 Weight 129.4 lbs 10/11/2024 Encounters Encounter Location Date Provider Diagnosis [facility] [address] [address] 09/23/2024 Junior Clubb Suicidal ideation R45.851 ; Severe episode of recurrent major depressive disorder, without psychotic features F33.2 ; Encounter for screening for depression Z13.31 ; Anxiety F41.9 ; Marijuana use F12.90 and Benign essential HTN I10 [facility], [place] [address] [address] 10/11/2024 Junior Clubb Severe episode of recurrent major depressive disorder, without psychotic features F33.2 ; Suicidal ideation R45.851 ; Anxiety F41.9 ; Marijuana use F12.90 ; Encounter for screening for depression Z13.31 and Encounter for screening for cardiovascular disorders Z13.6 [facility], [place] [address] [facility] [address] [place] [address] 10/25/2024 Junior Clubb [employer] [place] [address] [address] [facility] [address] [place] [address] 09/30/2024 Junior Clubb [employer] [place] [address] [facility] [address] [place] [address] 10/11/2024 Junior Davi Severe episode of recurrent major depressive disorder, without psychotic features F33.2 Assessments Encounter Date Diagnosis (ICD Code) Assessment Notes Treatment Notes Treatment Clinical Notes Section Notes 10/11/2024 Severe episode of recurrent major depressive disorder, without psychotic features (ICD-10 - F33.2) 10/11/2024 Severe episode of recurrent major depressive disorder, without psychotic features (ICD-10 - F33.2) 10/11/2024 Suicidal ideation (ICD-10 - R45.851) SPRAVATO is contraindicated in patients with: Aneurysmal vascular disease (including thoracic and abdominal aorta, intracranial and peripheral arterial vessels) or arteriovenous malformation No History of intracerebral hemorrhage No Hypersensitivity to Esketamine, ketamine, or any of the ingredients No UNCONTROLLED HYPERTENSION No Hypertension is not an absolute contraindication 09/23/2024 Severe episode of recurrent major depressive disorder, without psychotic features (ICD-10 - F33.2) 09/23/2024 Suicidal ideation (ICD-10 - R45.851) 09/23/2024 Encounter for screening for depression (ICD-10 - Z13.31) 10/11/2024 Anxiety (ICD-10 - F41.9) 10/11/2024 Marijuana use (ICD-10 - F12.90) 09/23/2024 Anxiety (ICD-10 - F41.9) 09/23/2024 Marijuana use (ICD-10 - F12.90) 10/11/2024 Encounter for screening for depression (ICD-10 - Z13.31) 10/11/2024 Encounter for screening for cardiovascular disorders (ICD-10 - Z13.6) 09/23/2024 Benign essential HTN (ICD-10 - I10) 09/23/2024 Other Learning About Depression Screening material was printed Major Depressive Disorder Assessment: Claudia presents with symptoms consistent with Major Depressive Disorder, including decreased concentration, decreased energy, difficulty sleeping, feelings of being slowed down, guilt, worthlessness, isolative behavior, and a sad mood. The onset appears to be related to her 's approximately 3 years ago. She rates her current depression as 8/10 in severity. Claudia has a history of alcohol use disorder, with 31 years of sobriety before relapsing after her 's . The relapse was brief due to developing pancreatitis. She denies current suicidal ideation but reports feeling scared and lacking a good support system. Claudia is currently on sertraline, but the dose appears to be suboptimal as she is not experiencing angel. Plan: - Increase sertraline to 100 mg daily - Assess for safety and potential need for inpatient psychiatric hospitalization - Patient to notify if experiencing impulses for self-harm or suicide - Continue current medications: - Follow up to reassess depression symptoms and medication efficacy Anxiety Assessment: Claudia reports anxiety symptoms, rating her current anxiety as 7/10 in severity. She is currently prescribed alprazolam 0.25 mg, suggesting a pre-existing anxiety disorder. Plan: - Continue alprazolam 0.25 mg as prescribed - Monitor anxiety symptoms in conjunction with depression treatment Alcohol Use Disorder (in remission) Assessment: Claudia has a history of alcohol use disorder with 31 years of sobriety before relapsing after her 's 3 years ago. The relapse was brief due to developing pancreatitis. She appears to be currently abstinent. Plan: - Monitor for any signs of alcohol use or cravings - Consider referral to substance abuse counseling or support groups if needed The note is transcribed using speech recognition software. It is a reflection of a visit with the patient. It might have some inaccuracy, including medication names and transcribing errors, though efforts have been made to correct them. 10/11/2024 Other Major Depressive Disorder with Suicidal Ideation Assessment: Claudia presents with ongoing depression symptoms, reporting a PHQ-9 score of 9 and a EDWIN-7 score of 5. She acknowledges having thoughts of suicide but states she would not act on them. This indicates active suicidal ideation without intent. Claudia recently underwent inpatient hospitalization, suggesting a severe depressive episode. Her current antidepressant regimen was recently adjusted, with an increase in dosage a couple of days ago. The persistence of depressive symptoms and suicidal thoughts despite medication adjustments and hospitalization indicates treatment-resista nt depression. Plan: - Continue current antidepressant regimen (sertraline) - Discussed potential for Spravato (esketamine) nasal spray treatment - Explained mechanism of action and treatment protocol - Informed patient of 2-hour treatment sessions - Discussed eligibility criteria: typically for patients who have tried 2 antidepressants or have suicidal thoughts - Consider addition of lithium for mood stabilization and suicide prevention - Provided crisis prevention hotline number (701) - Follow-up appointment scheduled within 2 weeks The note is transcribed using speech recognition software. It is a reflection of a visit with the patient. It might have some inaccuracy, including medication names and transcribing errors, though efforts have been made to correct them. 10/25/2024 Other Patient copay for spravato is $392.20 for 84mg and $564.26 for 56mg. Patient would likely benefit from M3P plan with Medicare. Plan Of Treatment No Information Insurance Providers Payer Name Payer Address Payer Phone Subscriber Number Group Number Insured Name Patient Relationship to Insured Coverage Start Date Coverage End Date [facility] [address] [place] [id number] [facility] - patient is the insured Medical (General) History Medical History History ICD Code Past Psychiatric History: Major Depressi ve Episode pancreatitis diabetes mellitus without complications hyperlipidemia hypertension coronary artery disease Surgical History Surgery Date(Month/Year) section bunion percutaneous coronary intervention (PCI) Hospitalization History Reason Date(Month/Year) SEPTEMBER 2024 inpatient psychiatr ic hospitalization for MDD and SI at [facility] surgery
== END 2025-01-31 13:58 | disposition home or self-care (01) ==
PROVIDERS: PCP Family Medicine; Visit Provider Podiatrist Foot & Ankle Surgery
DX: I73.9 Peripheral vascular disease, unspecified (principal)
CPT/HCPCS: 93923